=== PATIENT | female | born 1995 | race African-American/Black ===

== ENCOUNTER 2021-09-02 17:49 | Emergency (ER) | payer OTHER, SELFPAY ==
[2021-09-02 18:03] VITALS: BP 138/80; PULSE 84; RESP 18; TEMP 36.9; O2SAT 100
[2021-09-02 19:56] VITALS: BP 124/85; PULSE 82; RESP 16; O2SAT 98
[2021-09-02 20:13] LABS: Appearance Urine Clear (Clear); Bilirubin Urine Negative (Negative); Blood Urine Negative (Negative); Color Urine Yellow (Yellow); Glucose Urine UA Negative (Negative); Ketones Urine Trace mg/dL (Negative); Leukocyte Esterase Ur Negative LEU/UL (Negative); Nitrate Urine Negative (Negative); Protein Urine Negative (Negative); pH Urine 7.5 (5.0-9.0)
--- NOTE | 2021-09-02 20:15 | ED.FEMALEGU ---
HPI - Female Genitourinary General Chief complaint: Urogenital-Female <CELIA Jimenez Last Filed: 09/03/21 02:32> Stated complaint: genital pain <Emmanuelle Whelan PA-C - Last Filed: 09/03/21 02:32> Time Seen by Provider: 09/02/21 19:59 <Emmanuelle Whelan PA-C - Last Filed: 09/03/21 02:32> History of Present Illness HPI Narrative: Patient is a 25-year-old female here for evaluation of vaginal discharge, dysuria, and vaginal lumps for the past 3 days. Patient states her discharge is white and thick, and does not have a atypical odor for her. She states the vaginal lumps are noted around her right inguinal region, and are painful. She does note some burning when she urinates, and states that it is irritating the lumps when it touches them. Her last menstrual cycle is current. She is not using control. She is sexually active with 5 new partners over the past year, and is not using protection. Does note some lower abdominal discomfort after eating, but denies upper abdominal pain, fevers, chills. <CELIA Jimenez Last Filed: 09/03/21 02:32> Related Data Allergies/Adverse reactions: Allergies Allergy/AdvReac Type Severity Reaction Status Date / Time No Known Allergies Allergy Verified 09/02/21 19:57 <CELIA Jimenez Last Filed: 09/03/21 02:32> Review of Systems Review of Systems: Gen: Denies fevers or chills Eyes: Denies eye pain or visual change ENT: Denies congestion Respiratory: Denies shortness of breath or cough CV: Denies chest pain or palpitations GI: Denies abdominal pain nausea, emesis or diarrhea denies burning, urgency, frequency or hematuria Musculoskeletal: Denies back pain or muscle pain Neuro: Denies numbness, tingling, weakness or focal weakness Skin: Denies rash Except as documented, all other systems reviewed and negative <CELIA Jimenez Last Filed: 09/03/21 02:32> All systems reviewed & are unremarkable except as noted in HPI and below <Emmanuelle Whelan PA-C - Last Filed: 09/03/21 02:32> Exam Narrative: APPEARANCE: No acute distress, nontoxic, resting in bed EYES: EOMI HEENT: Normocephalic, atraumatic, OMM RESPIRATORY: No respiratory distress Clear to auscultation bilaterally with no rhonchi wheezing or rales. CARDIOVASCULAR: Regular rate and rhythm without murmurs rubs or gallops. ABDOMINAL: Soft, nontender, nondistended, no rebound or guarding MUSCULOSKELETAl: Moves all extremities. No clubbing, cyanosis or edema. : Exam performed with top case assembler Yenifer. Small amount of thin white vaginal discharge noted in vaginal vault. No cervical lesions noted. Patient is milldy tender with motion of the cervix. She has tender, mobile inguinal lymphadenopathy along the right. No rashes NEURO: Awake and alert. Following commands, speech normal, no focal deficits SKIN: Warm, dry. No rashes lesions or abrasions PSYCHIATRIC: Normal affect/mood, <Emmanuelle Whelan PA-C - Last Filed: 09/03/21 02:32> Course Vital Signs Vital signs: Vital Signs Temperature 98.5 F 09/02/21 18:03 Pulse Rate 84 09/02/21 18:03 Respiratory Rate 18 09/02/21 18:03 Blood Pressure 138/80 09/02/21 18:03 Pulse Oximetry 100 09/02/21 18:03 Temperature 98.5 F 09/02/21 18:03 Pulse Rate 80 09/02/21 21:09 Respiratory Rate 18 09/02/21 21:09 Blood Pressure 125/65 09/02/21 21:09 Pulse Oximetry 100 09/02/21 21:09 <Emmanuelle Whelan PA-C - Last Filed: 09/03/21 02:32> MDM - Female Genitourinary MDM Narrative Medical decision making narrative: 25-year-old female here for evaluation of vaginal discharge and lumps on the side of her vagina, likely inguinal lymphadenopathy. No rashes visualized on exam, but in the setting of mild cervical motion tenderness, 5 new unprotected sexual partner, and vaginal discharge noted on exam, will treat for PID. Feel outpatient management is
[2021-09-02 20:19] LABS: Mucus Urine Rare /lpf; RBC Urine 0-2 /hpf (0-2); Squamous Epithelial Cell Urine Occasional /hpf (Few); WBC Urine 0-3 /hpf
[2021-09-02 20:44] LABS: Add Urine Microscopic? YES
[2021-09-02] MEDS: cefTRIAXone 1 GM VIAL 0.5 GM IM (20:53)
[2021-09-02 21:09] VITALS: BP 125/65; PULSE 80; RESP 18; O2SAT 100
== END 2021-09-02 21:10 | disposition home or self-care (01) ==
PROVIDERS: Emergency Provider Emergency Medicine
DX: N76.0 Acute vaginitis (principal)
CPT/HCPCS: 81001; 81025; 87070; 87491; 87591; 87808; 96372; 99284; J0696

== ENCOUNTER 2021-11-25 19:15 | Emergency (ER) | payer BC, SELFPAY ==
--- NOTE | ~2021-11-25 | US_ITS ---
EXAMINATION: US pelvic complete w TV DATE: 11/25/2021 23:29 INDICATION: Left lower quadrant abdominal pain. TECHNIQUE: Multiple transabdominal and transvaginal sonographic images of the pelvis were obtained. COMPARISON: None. FINDINGS: TRANSABDOMINAL ULTRASOUND: The uterus is retroverted and measures 6.2 x 4.0 x 4.2 cm. There is no free fluid in the pelvis. TRANSVAGINAL ULTRASOUND: The endometrial complex measures 4 mm in thickness. The right ovary measures 2.1 x 1.4 x 2.7 cm. The left ovary measures 2.6 x 1.7 x 2.0 cm. There is normal vascular flow in the ovaries. IMPRESSION: 1. Normal pelvis. Reviewed, dictated and finalized at location A. IMPRESSION: 1. Normal pelvis.
[2021-11-25 20:07] VITALS: BP 128/86; PULSE 84; RESP 16; TEMP 36.5; O2SAT 100
[2021-11-25 21:02] LABS: Basophils Percent Auto 0.5 % (0.2-1.2); Eosinophils Absolute Auto 0.1 K/mm3 (0-0.3); Eosinophils Percent Auto 1.4 % (0-4.4); Hematocrit 39.3 % (37.0-47.0); Hemoglobin 12.7 g/dL (12.0-15.0); Immature Granulocyte Absolute 0.01 K/mm3 (0.00-0.031); Immature Granulocyte Percent A 0.2 % (0-0.5); Lymphocytes Absolute Auto 2.26 K/mm3 (0.9-3.2); Lymphocytes Percent Auto 39.6 % (18.3-44.2); Mean Corpuscular HGB Conc 32.3 g/dl (32-36); Mean Corpuscular Hemoglobin 31.4 pg (26-34); Mean Corpuscular Volume 97.3 fl (80-100); Monocytes Absolute Auto 0.5 K/mm3 (0.1-0.6); Monocytes Percent Auto 8.4 % (2.6-8.5); Neutrophils Absolute Auto 2.8 K/mm3 (1.3-6.7); Neutrophils Percent Auto 49.9 % (45.5-73.1); Platelet Count Result 195 k/mm3 (150-375); Red Blood Count 4.04 M/mm3 (4.2-5.4); Red Cell Distribution Width 12.6 % (11.5-14.5); White Blood Count 5.7 K/mm3 (4.5-10.0)
[2021-11-25 21:18] LABS: Platelet Estimate Adequate (Adequate); Stomatocytes 1+ (NORMAL)
[2021-11-25 21:29] LABS: Beta HCG Quantitative < 2.39 mIU/ML
--- NOTE | 2021-11-25 22:09 | ED.FEMALEGU ---
HPI - Female Genitourinary General Chief complaint: Vaginal Bleeding <CELIA Waller Last Filed: 11/26/21 02:02> Stated complaint: VAG BLEEDING X2D <CELIA Waller Last Filed: 11/26/21 02:02> Time Seen by Provider: 11/25/21 20:49 <CELIA Waller Last Filed: 11/26/21 02:02> Source: patient and old records reviewed <CELIA Waller Last Filed: 11/26/21 02:02> Mode of arrival: ambulatory <CELIA Waller Last Filed: 11/26/21 02:02> Limitations: no limitations <CELIA Waller Last Filed: 11/26/21 02:02> History of Present Illness HPI Narrative: Patient is a 26-year-old female who presents to the ED with report of heavy vaginal bleeding. Patient reports she started her normal menstrual cycle yesterday. She states her cycle has been heavier than usual, occasionally bleeding through super plus tampons. She is noted having blood clots. She states this is abnormal for her. She states she could be . She has had unprotected sex. Also reports having lower abdominal pain that started yesterday, which became worse today and localized to her left lower quadrant. Denies nausea, vomiting, fever, chills, diarrhea, constipation, rectal bleeding, dysuria, hematuria. Per records, patient was treated for PID in August. <CELIA Waller Last Filed: 11/26/21 02:02> Related Data Allergies/Adverse reactions: Allergies Allergy/AdvReac Type Severity Reaction Status Date / Time No Known Allergies Allergy Verified 11/25/21 19:16 <CELIA Waller Last Filed: 11/26/21 02:02> Review of Systems Review of Systems: CONSTITUTIONAL: Denies fever, chills, or sweats. GASTROINTESTINAL: Reports LLQ pain. Denies constipation, rectal bleeding, nausea, vomiting, or diarrhea. GENITOURINARY: Reports heavy vaginal bleeding with clots. Denies dysuria or hematuria. <CELIA Waller Last Filed: 11/26/21 02:02> All systems reviewed & are unremarkable except as noted in HPI and below <Tracy Lorenzo PA-C - Last Filed: 11/26/21 02:02> PMFSH Past Medical History Medical History: Medical History (Updated 11/26/21 @ 01:38 by Tracy Lorenzo PA-C) No pertinent past medical history <Tracy Lorenzo PA-C - Last Filed: 11/26/21 02:02> Surgical History Surgical History: Surgical History (Updated 11/25/21 @ 22:13 by Tracy Lorenzo PA-C) No pertinent past surgical history <Tracy Lorenzo PA-C - Last Filed: 11/26/21 02:02> Social History Social History: Social History (Updated 11/25/21 @ 22:13 by Tracy Lorenzo PA-C) Smoking status: Never smoker <Tracy Lorenzo PA-C - Last Filed: 11/26/21 02:02> Exam Narrative: GENERAL: Well appearing, well-nourished, non-toxic, in no acute distress. HEAD: Normocephalic, atraumatic. NECK: Supple. No adenopathy, no masses. RESPIRATORY: Airway patent, respirations nonlabored. Clear to auscultation bilaterally, no rales, rhonchi, wheezing. CARDIOVASCULAR: Regular rate and rhythm without murmurs, rubs, or gallops. Peripheral pulses 2+ and equal bilaterally. ABDOMINAL: Soft, mild tenderness to palpation in LLQ/suprapubic region. Minimal tenderness in epigastric region. Nondistended, no hepatosplenomegaly. Normoactive BS. PELVIC: MUSCULOSKELETAL: Moves all extremities. Strength/ROM intact without gross deformities. SKIN: Warm, dry, normal color. No rashes. NEURO: A&O X3. Speech clear. Cranial nerves II-XII grossly intact. Steady gait. No ataxic movements. PSYCHIATRIC: Appropriate mood and affect. Normal interaction. <Tracy Lorenzo PA-C - Last Filed: 11/26/21 02:02> Course GARNETTER/PA Physician Supervision For this patient encounter, I reviewed the GARNETTER or PA documentation, treatment plan, and medical decision making <Paulino Miles MD - Last Filed: 11/26/21 05:43> Vital Signs Vital signs: Vital Signs Temperature 97.7 F 11/25/21 20:07 Pulse Rate 84 11/25/21 20:07 Ricky
[2021-11-25 22:35] LABS: Appearance Urine Clear (Clear); Bilirubin Urine Negative (Negative); Blood Urine 3+ (Negative); Color Urine Yellow (Yellow); Glucose Urine UA Negative (Negative); Ketones Urine Negative (Negative); Leukocyte Esterase Ur Negative LEU/UL (Negative); Nitrate Urine Negative (Negative); Protein Urine Negative (Negative); Specific Grav Ur 1.025 (1.001-1.035); Urobilinogen Urine 0.2 mg/dL (<2.0); pH Urine 6.5 (5.0-9.0)
[2021-11-25 22:42] LABS: Bacteria Urine Trace /hpf; Mucus Urine Rare /lpf; RBC Urine >75 /hpf (0-2); Squamous Epithelial Cell Urine Occasional /hpf (Few); WBC Urine 0-3 /hpf
[2021-11-25 22:43] VITALS: BP 133/72; PULSE 69; RESP 18; O2SAT 99
[2021-11-25 22:50] LABS: Add Urine Microscopic? YES
[2021-11-26 00:20] LABS: Alanine Aminotransferase 38 U/L (6-35); Albumin Level 4.4 g/dL (3.5-5.1); Alkaline Phosphatase 45 U/L (38-126); Anion Gap 8 mmol/L (8-16); Aspartate Amino Transferase 50 U/L (14-36); Bilirubin,Total 0.4 mg/dL (0.2-1.3); Blood Urea Nitrogen 13 mg/dL (7-17); Calcium 9.3 mg/dL (8.4-10.2); Carbon Dioxide 29 mmol/L (22-30); Chloride 99 mmol/L (98-107); Estimated CRCL calculation 93 ml/min; Estimated Glomerular Filt Rate > 60; Glucose 93 mg/dL (65-110); Potassium 4.3 mmol/L (3.4-5.0); Sodium 136 mmol/L (137-145)
[2021-11-26] MEDS: IBUPROFEN 600 MG TABLET PO (01:48)
[2021-11-26 01:51] VITALS: BP 116/78; PULSE 68; RESP 18; O2SAT 100
== END 2021-11-26 01:52 | disposition home or self-care (01) ==
PROVIDERS: Physician Assistant; Emergency Provider Emergency Medicine
DX: N94.6 Dysmenorrhea, unspecified (principal); R74.01 Elevation of levels of liver transaminase levels
CPT/HCPCS: 36415; 76830; 76856; 80053; 81001; 81025; 84702; 85025; 99283; 99284; A9270

== ENCOUNTER 2022-11-25 11:37 | Emergency (ER) | payer BC, SELFPAY ==
[2022-11-25] VITALS (7 sets, daily range): BP systolic 101–144; BP diastolic 47–100; PULSE 77–101; RESP 16–18; TEMP 36.2; O2SAT 99–100
--- NOTE | ~2022-11-25 | US_ITS ---
EXAMINATION: US abdomen limited DATE: 11/25/2022 15:50 INDICATION: Right upper quadrant abdominal pain TECHNIQUE: Multiple grayscale and Doppler ultrasound images of the abdomen were obtained. COMPARISON: None FINDINGS: Pancreas is normal. Visualized proximal aorta and inferior vena cava are normal. Liver has normal ech ogenicity and contour, with a smooth surface. No liver lesion identified. No intrahepatic biliary shel[place] t dilation suspected. Portal venous flow was seen in the hepatopetal, normal direction and has normal Doppler waveform. The gallbladder is normal in appearance. There is no cholelithiasis. The common b ile duct measures 4 mm, which is normal. Sonographic Nguyen sign was reported as negative by the sono grapher. IMPRESSION: 1. Normal right upper quadrant ultrasound. Reviewed, dictated and finalized at location L.
--- NOTE | ~2022-11-25 | CT_ITS ---
EXAMINATION: CT abdomen pelvis w con DATE: 11/25/2022 13:56 INDICATION: RUQ pain TECHNIQUE: Computed tomography (CT) of the abdomen and pelvis was performed with 100 mL Omnipaque-350 intravenous contrast. Automated exposure control and iterative reconstruction technique were employe d. The dose-length product was 259.78 mGy-cm. COMPARISON: None. FINDINGS: Lower thorax: Unremarkable Liver: Normal. Biliary/Gallbladder: Gallbladder is normal. No bile duct dilation. Pancreas: No mass or duct dilation. Spleen: Normal. Adrenals:No mass. Kidneys: No mass, stone, or hydronephrosis. GI tract: Moderate distal esophageal and gastric wall edema. No small or large bowel dilation. Normal appendix. Mesentery/Peritoneum: No ascites, mass, or free air. Retroperitoneum: No mass. Pelvis: Pelvic organs are within normal limits. Retroverted uterus. Benign bilateral ovarian cysts. Soft Tissues: Soft tissues and body wall unremarkable. Bones: No acute osseous finding. IMPRESSION: Esophagitis/gastritis. No other acute abdominopelvic process detected Reviewed, dictated and finalized at location K.
[2022-11-25 12:10] LABS: Basophils Percent Auto 0.5 % (0.2-1.2); Eosinophils Absolute Auto 0.1 K/mm3 (0-0.3); Eosinophils Percent Auto 0.9 % (0-4.4); Hematocrit 40.1 % (37.0-47.0); Hemoglobin 13.1 g/dL (12.0-15.0); Immature Granulocyte Absolute 0.01 K/mm3 (0.00-0.031); Immature Granulocyte Percent A 0.2 % (0-0.5); Lymphocytes Absolute Auto 1.61 K/mm3 (0.9-3.2); Lymphocytes Percent Auto 28.7 % (18.3-44.2); Mean Corpuscular HGB Conc 32.7 g/dl (32-36); Mean Corpuscular Hemoglobin 31.3 pg (26-34); Mean Corpuscular Volume 95.9 fl (80-100); Mean Platelet Volume 11.8 fl (7.4-10.4); Monocytes Absolute Auto 0.7 K/mm3 (0.1-0.6); Monocytes Percent Auto 12.3 % (2.6-8.5); Neutrophils Absolute Auto 3.2 K/mm3 (1.3-6.7); Neutrophils Percent Auto 57.4 % (45.5-73.1); Platelet Count Result 227 k/mm3 (150-375); Red Blood Count 4.18 M/mm3 (4.2-5.4); Red Cell Distribution Width 12.7 % (11.5-14.5); White Blood Count 5.6 K/mm3 (4.5-10.0)
[2022-11-25 12:14] LABS: Appearance Urine Clear (Clear); Bilirubin Urine Negative (Negative); Blood Urine Negative (Negative); Color Urine Yellow (Yellow); Glucose Urine UA Negative (Negative); Ketones Urine Negative (Negative); Leukocyte Esterase Ur Negative LEU/UL (Negative); Nitrate Urine Negative (Negative); Protein Urine Negative (Negative); Specific Grav Ur 1.024 (1.001-1.035); pH Urine 7.5 (5.0-9.0)
[2022-11-25 12:21] LABS: Alanine Aminotransferase 24 U/L (6-35); Albumin Level 4.6 g/dL (3.5-5.1); Alkaline Phosphatase 45 U/L (38-126); Anion Gap 5 mmol/L (8-16); Aspartate Amino Transferase 31 U/L (14-36); Bilirubin,Total 0.6 mg/dL (0.2-1.3); Blood Urea Nitrogen 14 mg/dL (7-17); Calcium 9.1 mg/dL (8.4-10.2); Carbon Dioxide 28 mmol/L (22-30); Chloride 100 mmol/L (98-107); Estimated CRCL calculation 108 ml/min; Estimated Glomerular Filt Rate > 60; Glucose 95 mg/dL (65-110); Lipase 48 U/L (23-300); Potassium 4.5 mmol/L (3.4-5.0); Sodium 133 mmol/L (137-145)
[2022-11-25 12:29] LABS: Add Urine Microscopic? NO
[2022-11-25] MEDS: ONDANSETRON INJ 4 MG/2 ML VIAL IV PUSH (13:58)
[2022-11-25] MEDS: MORPHINE SULFATE (*CRX) 4 MG/ML INJ IV PUSH (13:58)
[2022-11-25] MEDS: SODIUM CHLORIDE 0.9% IV 1,000 ML 999 ML IV CONT (13:58)
[2022-11-25] MEDS: FAMOTIDINE 20 MG TABLET 40 MG PO (14:19)
[2022-11-25] MEDS: BELLADONNA ALK/PHENOB ELIX 10 ML, MAG HYDROX/ALUMINUM HYD/SIMETH 30 ML, LIDOCAINE HCL 2... PO (14:19)
--- NOTE | 2022-11-25 17:08 | ED.ABDPAIN ---
HPI - Abdominal Pain General Chief Complaint: Abdominal Pain Stated Complaint: cook pain Time Seen by Provider: 11/25/22 13:12 History of Present Illness HPI narrative: This is a 27F with no significant past medical history who presents to the ED complaining of right upper quadrant abdominal pain for several months, worse in the last 3-4 days. The pain is described as sharp and burning, located in the right upper quadrant, aggravated by eating and not radiating. She states she has vomited occasionally without blood. She denies dysuria, hematuria, blood in stool, fevers or chills. Related Data Allergies Allergy/AdvReac Type Severity Reaction Status Date / Time No Known Allergies Allergy Verified 11/25/22 11:51 Review of Systems Review of Systems: CONSTITUTIONAL: Denies fever, chills, or sweats. CARDIOVASCULAR: Denies chest pain, palpitations, or edema. RESPIRATORY: Denies cough or dyspnea. GASTROINTESTINAL: Right upper quadrant abdominal pain, nausea and nonbloody vomiting denies diarrhea. GENITOURINARY: Denies dysuria or hematuria. SKIN: Denies rash or itching. MUSCULOSKELETAL: Denies back pain, joint pain, or myalgia. NEUROLOGIC: Denies headache, numbness, dizziness, or weakness. PSYCHIATRIC: Denies anxiety or depression. [facility] Past Medical History Medical History History of miscarriage No pertinent past medical history Surgical History Surgical History No pertinent past surgical history [place] teeth removed Family History Family History Father Diabetes mellitus Sibling Asthma Social History Social History Smoking status: Never smoker Alcohol intake: current Substance use: never Lack of Transportation: No Lack of Food: Never True Current Housing: I Have Housing Concerned About Future Housing: No Difficulty Paying Gas/Electric Bills: No Difficulty Paying for Meds: No Currently Unemployed: No Education: Master's Degree or Higher Difficulty w/ Childcare or Family Care: No Living arrangements: alone Occupation/Education: occupation Gender identity (if verbalized by the patient): Female Sexual Orientation (if Verbalized by the Patient): Straight or Heterosexual Spiritual care concerns: No Exam Narrative: GENERAL: Well-developed, well-nourished, and in no acute distress. HEAD: Normocephalic, atraumatic. EYES: PERRLA and EOMI. CHEST: Clear to auscultation. No respiratory distress. No wheezes rales or rhonchi HEART: Regular rate and rhythm. No murmur heard. Normal peripheral pulses. ABDOMEN: Soft, RUQ tenderness to palpation without rebound or guarding. nondistended, normal active bowel sounds. EXTREMITIES: Normal range of motion. No edema. SKIN: Warm, dry, no rash. NEURO: No focal deficits. Alert and oriented x3. PSYCH: Normal mood and affect. Course Course Emergency Course: 17:09 - CT abdomen pelvis demonstrates changes consistent with gastritis/esophagitis but is otherwise negative. Bedside ultrasound by me was concerning for gallstone, however formal US was negative. test negative. CBC and chemistries were unremarkable. After pain medications, the patient states her pain is somewhat improved. I suspect gastritis. Will discharge with a PPI and recommendations for primary care follow up. Discussed return and emergency precautions including signs/symptoms of acute abdomen and intractable vomiting. The patient voiced understanding and is comfortable with the plan. All questions answered to her satisfaction. Vital Signs Vital signs: Vital Signs Temperature 97.2 F L 11/25/22 11:43 Pulse Rate 77 11/25/22 11:43 Respiratory Rate 16 11/25/22 11:43 Blood Pressure 132/100 H 11/25/22 11:43 Pulse Oximetry 100 11/25/22 11:43
[2022-11-25] MEDS: oxyCODONE/ACETAMINOPHEN (*CRX) 5-325 MG TABLET 1 TABLET PO (17:32)
== END 2022-11-25 17:39 | disposition home or self-care (01) ==
PROVIDERS: Emergency Provider Preventive Medicine Aerospace Medicine; PCP Internal Medicine
DX: K29.00 Acute gastritis without bleeding (principal)
CPT/HCPCS: 36415; 74177; 76705; 80053; 81003; 81025; 83690; 85025; 96361; 96374; 96375; 99284; A9270; J2270; J2405; J7030; Q9967

== ENCOUNTER 2022-12-01 15:33 | Outpatient (CLI) | payer BC, SELFPAY ==
--- NOTE | ~2022-12-01 | US_ITS ---
EXAMINATION: US pelvic complete w TV DATE: 12/01/2022 16:19 INDICATION: Pelvic pain TECHNIQUE: Multiple transabdominal and endovaginal sonographic images of the pelvis were obtained. COMPARISON: 11/25/2021; CT, 11/25/2022 FINDINGS: The uterus measures 6.7 x 4 x 4.6 cm. The endometrial complex measures 12 mm. The right ova ry measures 3 x 1.8 x 2.3 cm. The left ovary measures 2.5 x 1.9 x 1.8 cm. There is normal vascular fl ow in the ovaries. There is a small volume of likely physiologic free fluid in the pelvis. IMPRESSION: 1. No sonographic correlate for the patient's symptoms. Reviewed, dictated and finalized at location B.
== END 2022-12-01 15:34 | disposition home or self-care (01) ==
PROVIDERS: PCP Internal Medicine; Visit Provider Obstetrics & Gynecology
DX: R10.2 Pelvic and perineal pain (principal)
CPT/HCPCS: 76830; 76856

== ENCOUNTER 2023-09-11 16:20 | Emergency (ER) | payer BC, SELFPAY ==
--- NOTE | ~2023-09-11 | CT_ITS ---
EXAMINATION: CT abdomen pelvis w con DATE: 09/11/2023 18:18 INDICATION: Right lower quadrant pain TECHNIQUE: Computed tomography (CT) of the abdomen and pelvis was performed with 100 cc Omnipaque 350 intravenous contrast. The dose-length product was 337.61 mGy-cm. Automated exposure control and iter ative reconstruction technique were employed. COMPARISON: CT dated 11/25/2022. FINDINGS: Lung bases unremarkable. Heart size normal. No significant pleural or pericardial effusion. Mild thickening of the gastric wall, suspicious for gastritis. The liver, spleen, pancreas, adrenal glands and kidneys are unremarkable. Small fat-containing umbilical hernia. Gallbladder is contracted . Nonobstructive bowel gas pattern. No free air or free fluid. Uterus is retroverted. Normal appendix . No significant vascular abnormality. No lymphadenopathy. No acute osseous abnormality. IMPRESSION: 1. No acute abdominal abnormality. 2: Mild gastric wall thickening, suspicious for gastritis. Reviewed, dictated and finalized at location A.
--- NOTE | ~2023-09-11 | US_ITS ---
EXAMINATION: US pelvic complete w TV DATE: 09/11/2023 18:43 INDICATION: Right lower quadrant pain. Evaluate for torsion. Comparison:Ultrasound dated 12/01/2022 TECHNIQUE: Multiple transabdominal and endovaginal sonographic images of the pelvis performed. FINDINGS: The uterus measures 6.8 x 3.5 x 3.6 cm. Uterus is retroverted. The endometrial complex shimon ures 4 mm. The right ovary measures 3.5 x 1.8 x 1.6 cm and the left ovary measures 2.2 x 1.9 x 1.9 cm. There ar e small follicles in each ovary. Normal doppler signal in both ovaries. There is free fluid in the pelvis. There are no abnormal masses seen on either side. IMPRESSION: 1. Unremarkable pelvic ultrasound. Reviewed, dictated and finalized at location A.
[2023-09-11 16:28] VITALS: BP 138/88; PULSE 97; RESP 15; TEMP 36.4; O2SAT 99
[2023-09-11 17:32] LABS: Appearance Urine Clear (Clear); Bilirubin Urine Negative (Negative); Blood Urine Negative (Negative); Color Urine Yellow (Yellow); Glucose Urine UA Negative (Negative); Ketones Urine Negative (Negative); Leukocyte Esterase Ur Negative LEU/UL (Negative); Nitrate Urine Negative (Negative); Protein Urine Negative (Negative); Specific Grav Ur 1.027 (1.001-1.035)
[2023-09-11 17:33] LABS: Basophils Percent Auto 0.2 % (0.2-1.2); Eosinophils Absolute Auto 0.1 K/mm3 (0-0.3); Eosinophils Percent Auto 1.5 % (0-4.4); Hematocrit 41.7 % (37.0-47.0); Hemoglobin 13.5 g/dL (12.0-15.0); Immature Granulocyte Absolute 0.01 K/mm3 (0.00-0.031); Immature Granulocyte Percent A 0.2 % (0-0.5); Lymphocytes Absolute Auto 1.78 K/mm3 (0.9-3.2); Lymphocytes Percent Auto 33.5 % (18.3-44.2); Mean Corpuscular HGB Conc 32.4 g/dl (32-36); Mean Corpuscular Volume 95.6 fl (80-100); Monocytes Absolute Auto 0.5 K/mm3 (0.1-0.6); Monocytes Percent Auto 9.6 % (2.6-8.5); Neutrophils Absolute Auto 2.9 K/mm3 (1.3-6.7); Platelet Count Result 220 k/mm3 (150-375); Red Blood Count 4.36 M/mm3 (4.2-5.4); Red Cell Distribution Width 13.4 % (11.5-14.5); White Blood Count 5.3 K/mm3 (4.5-10.0)
[2023-09-11 17:44] LABS: Add Urine Microscopic? NO
[2023-09-11 17:46] LABS: Alanine Aminotransferase 23 U/L (6-35); Alkaline Phosphatase 50 U/L (38-126); Anion Gap 8 mmol/L (4-12); Aspartate Amino Transferase 30 U/L (14-36); Bilirubin,Total 0.6 mg/dL (0.2-1.3); Blood Urea Nitrogen 13 mg/dL (7-17); Calcium 9.3 mg/dL (8.4-10.2); Carbon Dioxide 28 mmol/L (22-30); Chloride 105 mmol/L (98-107); Estimated CRCL calculation 109 ml/min; Estimated Glomerular Filt Rate > 60; Glucose 90 mg/dL (65-110); Lipase 70 U/L (23-300); Potassium 3.6 mmol/L (3.4-5.0); Sodium 141 mmol/L (137-145)
--- NOTE | 2023-09-11 18:07 | PC.NURSE ---
patient to imaging
[2023-09-11] MEDS: ONDANSETRON INJ 4 MG/2 ML VIAL IV PUSH (18:41)
--- NOTE | 2023-09-11 18:49 | ED.ABDPAIN ---
HPI - Abdominal Pain General Chief Complaint: Abdominal Pain Stated Complaint: RLQ pain Time Seen by Provider: 09/11/23 17:10 Source: patient Mode of arrival: ambulatory Limitations: no limitations History of Present Illness HPI narrative: Patient is a 27-year-old female who presents the ED with report of right lower abdominal pain. Patient reports having pain for the last 2 days. Worse with deep breathing and certain movements. Radiates around slightly to back. She tried taking Tylenol without improvement. She does report nausea, denies vomiting. Denies diarrhea, constipation, fevers, dysuria, hematuria. Does note that she is currently on her normal menstrual cycle. Denies hx of ovarian cysts. Related Data Allergies Allergy/AdvReac Type Severity Reaction Status Date / Time No Known Allergies Allergy Verified 02/15/23 13:51 Review of Systems Review of Systems: CONSTITUTIONAL: Denies fever, chills, or sweats. GASTROINTESTINAL: See HPI. GENITOURINARY: Denies dysuria or hematuria. MUSCULOSKELETAL: See HPI All systems reviewed & are unremarkable except as noted in HPI and below PMFSH Past Medical History Medical History History of miscarriage No pertinent past medical history Surgical History Surgical History No pertinent past surgical history [place] teeth removed Family History Family History Father Diabetes mellitus Sibling Asthma Social History Social History Smoking status: Never smoker Alcohol intake: current Substance use: never Lack of Transportation: No Lack of Food: Never True Current Housing: I Have Housing Concerned About Future Housing: No Difficulty Paying Gas/Electric Bills: No Difficulty Paying for Meds: No Currently Unemployed: No Education: Master's Degree or Higher Difficulty w/ Childcare or Family Care: No Living arrangements: alone Occupation/Education: occupation Gender identity (if verbalized by the patient): Female Sexual Orientation (if Verbalized by the Patient): Straight or Heterosexual Spiritual care concerns: No Exam Narrative: GENERAL: Well appearing, well-nourished, non-toxic, in no acute distress. HEAD: Normocephalic, atraumatic. RESPIRATORY: Airway patent, respirations nonlabored. Clear to auscultation bilaterally, no rales, rhonchi, wheezing. CARDIOVASCULAR: Regular rate and rhythm without murmurs, rubs, or gallops. ABDOMINAL: Soft, mild tenderness in right upper quadrant, right middle abdomen. No significant tenderness throughout right lower quadrant. Nondistended. Normoactive BS. MUSCULOSKELETAL: Moves all extremities. No gross deformities. SKIN: Warm, dry, normal color. NEURO: A&O X3. Speech clear. PSYCHIATRIC: Appropriate mood and affect. Normal interaction. Course Vital Signs Vital signs: Vital Signs Temperature 97.5 F L 09/11/23 16:28 Pulse Rate 97 09/11/23 16:28 Respiratory Rate 15 09/11/23 16:28 Blood Pressure 138/88 09/11/23 16:28 Pulse Oximetry 99 09/11/23 16:28 Oxygen Delivery Room Air 09/11/23 16:28 Temperature 97.5 F L 09/11/23 16:28 Pulse Rate 68 09/11/23 19:37 Respiratory Rate 16 09/11/23 19:37 Blood Pressure 128/76 09/11/23 19:37 Pulse Oximetry 98 09/11/23 19:37 Oxygen Delivery Room Air 09/11/23 16:28 MDM - Abdominal Pain MDM Narrative Medical decision making narrative: Patient presented to ED with R lower abdominal pain X 2 days. Vital signs stable upon arrival. Patient reporting pain more in her right lower abdomen, though more tender throughout right upper quadrant on exam. Will obtain lab and imaging to further evaluate. CBC and CMP unremarkable. No significant abnormalities. No leukocytosis. Normal LFTs
[2023-09-11] MEDS: BELLADONNA ALK/PHENOB ELIX 10 ML, MAG HYDROX/ALUMINUM HYD/SIMETH 30 ML, LIDOCAINE HCL 2... PO (18:59)
[2023-09-11 19:37] VITALS: BP 128/76; PULSE 68; RESP 16; O2SAT 98
== END 2023-09-11 19:38 | disposition home or self-care (01) ==
PROVIDERS: Emergency Provider Physician Assistant; PCP Internal Medicine
DX: K29.70 Gastritis, unspecified, without bleeding (principal)
CPT/HCPCS: 36415; 74177; 76830; 76856; 80053; 81003; 81025; 83690; 85025; 96374; 99284; A9270; J2405; Q9967

== ENCOUNTER 2023-11-23 14:42 | Outpatient (CLI) | payer BC, SELFPAY ==
--- NOTE | ~2023-11-23 | US_ITS ---
Pelvic ultrasound. Clinical History: First trimester , amenorrhea Technique: Realtime transabdominal and transvaginal scanning of the pelvis was performed. Color flow Doppler and Doppler spectral analysis were performed. Findings: The uterus is anteverted, and contains an intrauterine gestation. Placenta anteriorly locat ed. [place]-rump length of 5.2 cm corresponds to an estimated gestational age of 12 weeks 0 days. heart rate is 155 bpm. The right ovary measures 4.0 x 3.3 x 3.0 cm. Simple right ovarian cyst measures 3.4 cm. The left ovary measures 3.6 x 3.0 x 2.0 cm. No significant left ovarian or adnexal mass is seen. There is no evidence of free fluid in the cul de sac. Impression: Live intrauterine gestation, with estimated gestational age of 12 weeks 0 days. heart rate is 1 55 bpm. 3.4 cm simple right ovarian cyst. Reviewed, dictated and finalized at [facility]. Impression: Live intrauterine gestation, with estimated gestational age of 12 weeks 0 days. heart rate is 155 bpm. 3.4 cm simple right ovarian cyst.
== END 2023-11-23 14:43 | disposition home or self-care (01) ==
LOC: ANHIMG 14:44
PROVIDERS: PCP Internal Medicine; Visit Provider Nurse Practitioner Family
DX: N91.2 Amenorrhea, unspecified (principal); Z3A.12 12 weeks gestation of pregnancy; N83.291 Other ovarian cyst, right side
CPT/HCPCS: 76801

== ENCOUNTER 2023-12-13 13:46 | Outpatient (CLI) | payer BC, SELFPAY ==
[2023-12-13 14:39] LABS: Basophils Percent Auto 0.3 % (0.2-1.2); Eosinophils Percent Auto 0.6 % (0-4.4); Hematocrit 39.3 % (37.0-47.0); Hemoglobin 12.7 g/dL (12.0-15.0); Immature Granulocyte Absolute 0.02 K/mm3 (0.00-0.031); Immature Granulocyte Percent A 0.3 % (0-0.5); Lymphocytes Absolute Auto 1.17 K/mm3 (0.9-3.2); Lymphocytes Percent Auto 17.4 % (18.3-44.2); Mean Corpuscular HGB Conc 32.3 g/dl (32-36); Mean Corpuscular Hemoglobin 30.5 pg (26-34); Mean Corpuscular Volume 94.5 fl (80-100); Mean Platelet Volume 11.9 fl (7.4-10.4); Monocytes Absolute Auto 0.6 K/mm3 (0.1-0.6); Monocytes Percent Auto 8.2 % (2.6-8.5); Neutrophils Absolute Auto 4.9 K/mm3 (1.3-6.7); Neutrophils Percent Auto 73.2 % (45.5-73.1); Platelet Count Result 216 k/mm3 (150-375); Red Blood Count 4.16 M/mm3 (4.2-5.4); Red Cell Distribution Width 12.9 % (11.5-14.5); White Blood Count 6.7 K/mm3 (4.5-10.0)
[2023-12-13 14:44] LABS: Add Urine Microscopic? NO; Appearance Urine Clear (Clear); Bilirubin Urine Negative (Negative); Blood Urine Negative (Negative); Color Urine Yellow (Yellow); Glucose Urine UA Negative (Negative); Ketones Urine Trace mg/dL (Negative); Leukocyte Esterase Ur Negative LEU/UL (Negative); Nitrate Urine Negative (Negative); Protein Urine Negative (Negative); Specific Grav Ur 1.025 (1.001-1.035); pH Urine 6.5 (5.0-9.0)
[2023-12-13 15:29] LABS: HIV 1/2 Ab P24 Ag Result Negative (Negative)
[2023-12-13 15:57] LABS: Hepatitis B Surface Antigen Negative (Negative); Rubella IgG Antibody 34.8 IU/ML
[2023-12-13 16:11] LABS: Hepatitis C Virus Antibody Negative (Negative)
[2023-12-13 18:40] LABS: Rapid Plasma Reagin Non-Reactive (NonReactive)
[2023-12-16 00:18] LABS: Hematocrit 41.1 % (35.0-45.0); Hemoglobin 12.8 g/dL (11.7-15.5); MCV 99.5 fL (80.0-100.0); RDW 12.8 % (11.0-15.0); Red Blood Cell Count 4.13 Million/uL (3.80-5.10)
== END 2023-12-13 13:47 | disposition home or self-care (01) ==
LOC: ANHLAB 13:48
PROVIDERS: PCP Internal Medicine; Visit Provider Obstetrics & Gynecology
DX: Z34.90 Encounter for supervision of normal pregnancy, unspecified, unspecified trimester (principal)
CPT/HCPCS: 36415; 81003; 83021; 85025; 86592; 86703; 86762; 86787; 86803; 86850; 86900; 86901; 87086; 87340; G0432

== ENCOUNTER 2024-01-08 10:27 | Emergency (ER) | payer BC, OTHER, SELFPAY ==
--- NOTE | ~2024-01-08 | US_ITS ---
EXAMINATION: US OB follow up DATE: 01/08/2024 11:07 INDICATION: Abdominal pain. TECHNIQUE: Real-time ultrasound of the pelvis was performed. COMPARISON: Ultrasound 11/23/2023 FINDINGS: There is a single living fetus in breech presentation. The placenta is anterior, 2.9 cm from the cer vix. heart rate is 178 beats per minute (bpm). The amniotic fluid volume is subjectively normal . The deepest vertical pocket is 3.6 cm. The following biometric data were obtained: Biparietal diameter (BPD): 4.0 cm; head circumference (HC): 15.4 cm; abdominal circumference (AC): 12 .0 cm; femur length (FL): 2.8 cm. These measurements are discordant with high HC/AC ratio. Estimated weight is 226 g +/- 34 g, which correlates with the 86th percentile when 06/14/24 is u sed as estimated date of delivery. As single measurements, these parameters are each equal to the following estimated gestational ages: BPD: 18 weeks 1 days. HC: 18 weeks 3 days. AC: 17 weeks 5 days. FL: 18 weeks 4 days. estimated gestational age based solely on measurements from this exam is 18 weeks 2 days +/- 1 weeks 2 days. IMPRESSION: 1. Single living fetus in breech presentation. 2. Estimated weight is 226 g +/- 34 g, which correlates with the 86th percentile when 06/14/24 is used as estimated date of delivery. Note that estimated date of delivery based on the ultrasound f rom 11/23/2023 would be 06/08/2024. 3. Discordant biometrics with high HC/AC ratio. Reviewed, dictated and finalized at location A. IMPRESSION: 1. Single living fetus in breech presentation. 2. Estimated weight is 226 g +/- 34 g, which correlates with the 86th pe rcentile when 06/14/24 is used as estimated date of delivery. Note that estimate d date of delivery based on the ultrasound from 11/23/2023 would be 06/08/2024. 3. Discordant biometrics with high HC/AC ratio.
[2024-01-08 10:31] VITALS: BP 130/86; PULSE 72; RESP 19; TEMP 36.6; O2SAT 100
--- NOTE | 2024-01-08 11:14 | ED.ABDPAIN ---
HPI - Abdominal Pain General Chief Complaint: Abdominal Pain Stated Complaint: 18 weeks , lower abd Time Seen by Provider: 01/08/24 10:34 History of Present Illness HPI narrative: Patient is a 28-year-old female who presents to the emergency department this morning complaining of right lower quadrant abdominal pain and watery vaginal discharge. Patient states that she is approximately 18 weeks , this is her 2nd , 1st resulted in a miscarriage. Patient sees Dr. Pate as her OBGYN and her last ultrasound was performed approximately 4 weeks ago and revealed a right ovarian cyst which her OB has been monitoring. Patient denies any vaginal bleeding or spotting stating that she has not had any spotting throughout this . Denies any urinary symptoms including dysuria or hematuria, denies any fevers or chills and denies any nausea or vomiting. No additional symptoms or concerns at this time. Related Data Home Medications Medication Instructions Recorded Confirmed dicyclomine 20 mg tablet 20 mg PO BID 11/10/23 11/10/23 famotidine 20 mg tablet 20 mg PO DAILY PRN 11/10/23 11/10/23 Allergies Allergy/AdvReac Type Severity Reaction Status Date / Time No Known Allergies Allergy Verified 01/08/24 10:38 Review of Systems Review of Systems: All systems are reviewed and are negative unless stated otherwise in the HPI. [facility] Past Medical History Medical History History of miscarriage No pertinent past medical history Surgical History Surgical History No pertinent past surgical history Mora teeth removed Family History Family History Father Diabetes mellitus Sibling Asthma Social History Social History Smoking status: Never smoker Alcohol intake: current Substance use: never Lack of Transportation: No Lack of Food: Never True Current Housing: I Have Housing Concerned About Future Housing: No Difficulty Paying Gas/Electric Bills: No Difficulty Paying for Meds: No Currently Unemployed: No Education: Master's Degree or Higher Difficulty w/ Childcare or Family Care: No Living arrangements: alone Occupation/Education: occupation Gender identity (if verbalized by the patient): Female Sexual Orientation (if Verbalized by the Patient): Straight or Heterosexual Spiritual care concerns: No Exam Narrative: General: Alert, awake, afebrile, in no acute distress. HEENT: PERRL, no rhinorrhea, no post nasal drip, oropharynx clear. Cardiovascular: Regular rate and rhythm, no murmurs, rubs or gallops, no peripheral edema. Respiratory: Clear to auscultation bilaterally, no tachypnea, no wheezing, no rhonchi, no rubs, no respiratory distress. Abdomen: Soft, nontender, nondistended, no rebound, no guarding, no peritoneal signs. Musculoskeletal: No joint swelling or deformity, normal muscle tone. Skin: No rashes or petechia, no signs of infection. Neurological: Alert and oriented to person, place, and time. Follows all commands. No focal deficits, speech is clear and fluent. Course Vital Signs Vital signs: Vital Signs Temperature 97.9 F 01/08/24 10:31 Pulse Rate 72 01/08/24 10:31 Respiratory Rate 19 01/08/24 10:31 Blood Pressure 130/86 01/08/24 10:31 Pulse Oximetry 100 01/08/24 10:31 Oxygen Delivery Room Air 01/08/24 10:31 Temperature 97.9 F 01/08/24 10:31 Pulse Rate 72 01/08/24 10:31 Respiratory Rate 19 01/08/24 10:31 Blood Pressure 130/86 01/08/24 10:31 Pulse Oximetry 100 01/08/24 10:31 Oxygen Delivery Room Air 01/08/24 10:31 MDM - Abdominal Pain MDM Narrative Medical decision making narrative: The patient was evaluated by myself in the emergency department. History is
[2024-01-08 11:39] LABS: Add Urine Microscopic? YES; Appearance Urine Clear (Clear); Bacteria Urine Rare /hpf; Bilirubin Urine Negative (Negative); Blood Urine Negative (Negative); Color Urine Yellow (Yellow); Glucose Urine UA Negative (Negative); Ketones Urine 4+ mg/dL (Negative); Leukocyte Esterase Ur Negative LEU/UL (Negative); Nitrate Urine Negative (Negative); Non Pathogenic Casts 0-2; Protein Urine Trace mg/dL (Negative); RBC Urine 0-2 /hpf (0-2); Specific Grav Ur 1.025 (1.001-1.035); Squamous Epithelial Cell Urine Few /hpf (Few); WBC Urine 0-5 /hpf (0-3); pH Urine 6.5 (5.0-9.0)
[2024-01-08 11:49] LABS: Basophils Percent Auto 0.2 % (0.2-1.2); Hematocrit 35.5 % (37.0-47.0); Hemoglobin 11.9 g/dL (12.0-15.0); Immature Granulocyte Absolute 0.02 K/mm3 (0.00-0.031); Immature Granulocyte Percent A 0.3 % (0-0.5); Lymphocytes Absolute Auto 0.86 K/mm3 (0.9-3.2); Lymphocytes Percent Auto 14.6 % (18.3-44.2); Mean Corpuscular HGB Conc 33.5 g/dl (32-36); Mean Corpuscular Hemoglobin 31.3 pg (26-34); Mean Corpuscular Volume 93.4 fl (80-100); Mean Platelet Volume 11.6 fl (7.4-10.4); Monocytes Absolute Auto 0.5 K/mm3 (0.1-0.6); Monocytes Percent Auto 7.6 % (2.6-8.5); Neutrophils Absolute Auto 4.6 K/mm3 (1.3-6.7); Neutrophils Percent Auto 77.3 % (45.5-73.1); Platelet Count Result 167 k/mm3 (150-375); Red Cell Distribution Width 13.2 % (11.5-14.5); White Blood Count 5.9 K/mm3 (4.5-10.0)
[2024-01-08 12:04] LABS: Alanine Aminotransferase 148 U/L (6-35); Albumin Level 3.8 g/dL (3.5-5.1); Alkaline Phosphatase 53 U/L (38-126); Anion Gap 7 mmol/L (4-12); Aspartate Amino Transferase 98 U/L (14-36); Bilirubin,Total 0.4 mg/dL (0.2-1.3); Blood Urea Nitrogen 7 mg/dL (7-17); Calcium 8.6 mg/dL (8.4-10.2); Carbon Dioxide 25 mmol/L (22-30); Chloride 98 mmol/L (98-107); Estimated CRCL calculation 150 ml/min; Estimated Glomerular Filt Rate > 60; Glucose 92 mg/dL (65-110); Magnesium 1.7 mg/dL (1.6-2.3); Potassium 3.2 mmol/L (3.4-5.0); Sodium 130 mmol/L (137-145)
[2024-01-08] MEDS: SODIUM CHLORIDE 0.9% IV 1,000 ML 999 ML IV CONT (12:28)
[2024-01-08 12:29] VITALS: BP 117/70; PULSE 70; RESP 19; O2SAT 100
[2024-01-08 13:12] VITALS: BP 126/66; PULSE 73; RESP 20; O2SAT 100
== END 2024-01-08 13:13 | disposition home or self-care (01) ==
PROVIDERS: Emergency Provider Emergency Medicine; PCP Internal Medicine
DX: O26.892 Other specified pregnancy related conditions, second trimester (principal); R10.31 Right lower quadrant pain; E86.0 Dehydration; Z3A.18 18 weeks gestation of pregnancy
CPT/HCPCS: 36415; 76816; 80053; 81001; 83735; 85025; 96360; 99284; J7030

== ENCOUNTER 2024-03-13 10:34 | Outpatient (CLI) | payer BC, SELFPAY ==
[2024-03-13 11:50] LABS: Basophils Percent Auto 0.1 % (0.2-1.2); Eosinophils Absolute Auto 0.1 K/mm3 (0-0.3); Eosinophils Percent Auto 0.8 % (0-4.4); Hematocrit 33.9 % (37.0-47.0); Immature Granulocyte Absolute 0.03 K/mm3 (0.00-0.031); Immature Granulocyte Percent A 0.4 % (0-0.5); Lymphocytes Absolute Auto 1.37 K/mm3 (0.9-3.2); Lymphocytes Percent Auto 16.2 % (18.3-44.2); Mean Corpuscular HGB Conc 32.4 g/dl (32-36); Mean Corpuscular Hemoglobin 30.6 pg (26-34); Mean Corpuscular Volume 94.2 fl (80-100); Mean Platelet Volume 11.5 fl (7.4-10.4); Monocytes Absolute Auto 0.5 K/mm3 (0.1-0.6); Monocytes Percent Auto 5.6 % (2.6-8.5); Neutrophils Absolute Auto 6.5 K/mm3 (1.3-6.7); Neutrophils Percent Auto 76.9 % (45.5-73.1); Platelet Count Result 183 k/mm3 (150-375); Red Cell Distribution Width 13.6 % (11.5-14.5); White Blood Count 8.5 K/mm3 (4.5-10.0)
[2024-03-13 12:01] LABS: Glucose 1 Hour PP 50gm Dose 141 mg/dL
== END 2024-03-13 10:35 | disposition home or self-care (01) ==
LOC: ANHLAB 10:35
PROVIDERS: PCP Internal Medicine; Visit Provider Nurse Practitioner Family
DX: Z34.90 Encounter for supervision of normal pregnancy, unspecified, unspecified trimester (principal)
CPT/HCPCS: 36415; 82947; 85025

== ENCOUNTER 2024-03-23 07:12 | Outpatient (CLI) | payer BC, SELFPAY ==
[2024-03-23 07:40] LABS: Basophils Percent Auto 0.3 % (0.2-1.2); Eosinophils Percent Auto 0.5 % (0-4.4); Hematocrit 32.9 % (37.0-47.0); Hemoglobin 10.7 g/dL (12.0-15.0); Immature Granulocyte Absolute 0.03 K/mm3 (0.00-0.031); Immature Granulocyte Percent A 0.4 % (0-0.5); Lymphocytes Absolute Auto 1.18 K/mm3 (0.9-3.2); Lymphocytes Percent Auto 15.5 % (18.3-44.2); Mean Corpuscular HGB Conc 32.5 g/dl (32-36); Mean Corpuscular Hemoglobin 30.4 pg (26-34); Mean Corpuscular Volume 93.5 fl (80-100); Mean Platelet Volume 11.6 fl (7.4-10.4); Monocytes Absolute Auto 0.6 K/mm3 (0.1-0.6); Monocytes Percent Auto 7.6 % (2.6-8.5); Neutrophils Absolute Auto 5.8 K/mm3 (1.3-6.7); Neutrophils Percent Auto 75.7 % (45.5-73.1); Platelet Count Result 181 k/mm3 (150-375); Red Blood Count 3.52 M/mm3 (4.2-5.4); Red Cell Distribution Width 13.8 % (11.5-14.5); White Blood Count 7.6 K/mm3 (4.5-10.0)
[2024-03-23 07:55] LABS: Glucose Fasting Gestational 82 mg/dL (>/=95)
[2024-03-23 09:16] LABS: Glucose 1 Hour Gest 137 mg/dL (>/=180)
[2024-03-23 10:32] LABS: Glucose 2 Hour Gest 121 mg/dL (>/= 155)
[2024-03-23 11:30] LABS: Glucose 3 Hour Gest 110 mg/dL (>/=140)
== END 2024-03-23 07:13 | disposition home or self-care (01) ==
PROVIDERS: PCP Internal Medicine; Visit Provider Obstetrics & Gynecology
DX: O99.810 Abnormal glucose complicating pregnancy (principal)
CPT/HCPCS: 36415; 82951; 82952; 85025

== ENCOUNTER 2024-04-13 11:56 | Outpatient (CLI) | payer BC, SELFPAY ==
[2024-04-13 12:10] LABS: Basophils Percent Auto 0.2 % (0.2-1.2); Eosinophils Percent Auto 0.5 % (0-4.4); Hematocrit 34.7 % (37.0-47.0); Hemoglobin 11.3 g/dL (12.0-15.0); Immature Granulocyte Absolute 0.04 K/mm3 (0.00-0.031); Immature Granulocyte Percent A 0.5 % (0-0.5); Lymphocytes Absolute Auto 1.37 K/mm3 (0.9-3.2); Lymphocytes Percent Auto 15.6 % (18.3-44.2); Mean Corpuscular HGB Conc 32.6 g/dl (32-36); Mean Corpuscular Hemoglobin 30.4 pg (26-34); Mean Corpuscular Volume 93.3 fl (80-100); Mean Platelet Volume 11.7 fl (7.4-10.4); Monocytes Absolute Auto 0.5 K/mm3 (0.1-0.6); Monocytes Percent Auto 5.8 % (2.6-8.5); Neutrophils Absolute Auto 6.8 K/mm3 (1.3-6.7); Neutrophils Percent Auto 77.4 % (45.5-73.1); Platelet Count Result 170 k/mm3 (150-375); Red Blood Count 3.72 M/mm3 (4.2-5.4); Red Cell Distribution Width 14.6 % (11.5-14.5); White Blood Count 8.8 K/mm3 (4.5-10.0)
[2024-04-13 12:39] LABS: Giant Platelets Present; Large Platelets Present; Platelet Estimate Adequate (Adequate); Polychromasia 2+
[2024-04-13 12:40] LABS: Rapid Plasma Reagin Non-Reactive (NonReactive); Schistocytes Rare
[2024-04-13 12:59] LABS: HIV 1/2 Ab P24 Ag Result Negative (Negative)
== END 2024-04-13 11:57 | disposition home or self-care (01) ==
LOC: ANHLAB 11:57
PROVIDERS: PCP Internal Medicine; Visit Provider Nurse Practitioner Obstetrics & Gynecology
DX: Z34.90 Encounter for supervision of normal pregnancy, unspecified, unspecified trimester (principal)
CPT/HCPCS: 36415; 85025; 86592; 86703; G0432

== ENCOUNTER 2024-06-05 09:52 | Observation (INO) | payer BC, SELFPAY ==
--- OUTSIDE RECORDS SUMMARY | 2024-06-05 12:17 | XMS_ITS | Referral Summary ---
Author Organization [facility] at the [facility] Address [address] [place] [address] Care Team Providers Care Hot Press Operator Name Role Phone Milagros Isabel MD Primary Care Provider +1- [phone] Allergies No known active allergies Medications ciprofloxacin (CIPRO) 500 mg tablet Take 1 tablet (500 mg total) by mouth 2 (two) times a day Active metroNIDAZOLE (FLAGYL) 500 mg/100 mL IVBP Infuse 100 mL (500 mg total) into a venous catheter Active omeprazole OTC (PriLOSEC OTC) 20 mg EC tablet Take 1 tablet (20 mg total) by mouth daily Active Active Problems Problem Noted Date Diagnosed Date CORIN (obstructive sleep apnea) 11/19/2021 Assessment & Plan (11/19/2021 3:56 PM CDT): Patient will continue with auto titrating CPAP set at 5-15 cm water pressure. Patient was reminded that she should wear her CPAP machine at least 4 hours a night on 70% of the nights. DME aero Resolved Problems Problem Noted Date Diagnosed Date Resolved Date Snoring 05/28/2021 11/19/2021 Assessment & Plan (05/28/2021 3:59 PM MINE WEDGE SAWYER): The patient presents with snoring and daytime hypersomnia. She also has a history of sleep paralysis and hypnagogic hallucinations. I have recommended proceeding with a nocturnal polysomnogram with a split night protocol if necessary and MSLT p.r.n.. She will follow-up here in 3 months. Hypersomnia 05/28/2021 11/19/2021 Social History Tobacco Use Types Packs/Day Years Used Date Smoking Tobacco: Never Smokeless Tobacco: Never AUDIT-C Answer Date Recorded Q1: How often do you have a drink containing alcohol? 2-3 times a week 12/17/2022 Q2: How many drinks containi ng alcohol do you have on a typical day when you are drinking? Patient does not drink Q3: How often do you have si x or more drinks on one occasion? Never 12/17/2022 Personal Safety Answer Date Recorded Getting School Help Needed Not on file 01/06 Comments Unknown Sex and Gender Information Value Date Recorded Sex Assigned at Not on file Legal Sex Female 6:06 PM MINE WEDGE SAWYER Gender Identity Female 11/29/2022 1:26 PM CDT Sexual Orientation Not on file Last Filed Vital Signs Vital Sign Reading Time Taken Comments Blood Pressure 130/83 12/17/2022 4:25 PM CDT Pulse 74 12/17/2022 4:25 PM CDT Temperature 36.9 C (98.4 F) 12/17/2022 2:50 PM CDT Respiratory Rate 12 12/17/2022 4:25 PM CDT Oxygen Saturation 100% 12/17/2022 4:25 PM CDT Inhaled Oxygen Concentration - - Weight 68 kg (150 lb) 12/17/2022 2:43 PM CDT Height 157.5 cm (5' 2 ) 12/17/2022 2:43 PM CDT Body Mass Index 27.44 12/17/2022 2:43 PM CDT Plan of Treatment Not on file Insurance [facility] [place] Care Teams Hot Press Operator Relationship Specialty Start Date End Date Milagros Isabel MD [address] [place], [place] [id number] PCP - General Internal Medicine 12/15/22
--- OUTSIDE RECORDS SUMMARY | 2024-06-05 12:17 | XMS_ITS | Clinical Summary ---
Author Organization [facility] at the [facility] Address [address] [place] [address] Care Team Providers Care Solutions Operator Name Role Phone Milagros Isabel MD Primary Care Provider +1- [phone] Allergies No known active allergies Medications ciprofloxacin [...] 11/19/2021 Assessment & Plan (05/28/2021 3:59 PM MACHINE FOLDER): The patient presents with snoring and daytime hypersomnia. She also has a history of sleep paralysis and hypnagogic hallucinations. I have recommended proceeding with a nocturnal polysomnogram with a split night protocol if necessary and MSLT p.r.n.. She will follow-up here in 3 months. Hypersomnia 05/28/2021 11/19/2021 Surgical History Surgery Date Site/Laterality Comments WISDOM TOOTH EXTRACTION Medical History Medical History Date Comments Depression Social History Tobacco Use Types Packs/Day Years [...] on file Legal Sex Female 6:06 PM MACHINE FOLDER Gender Identity Female 11/29/2022 1:26 PM CDT Sexual Orientation Not on file Obstetrics History Last Filed Vital Signs Vital Sign Reading [...] 12/17/2022 2:43 PM CDT Plan of Treatment Health Maintenance Due Date Last Done Comments Cervical Cancer Screening 1993 Depression Screening 1993 Hepatitis C Screening 1993 Varicella Vaccines (2 of 2 - 2-dose childhood series) 08/15/2000 05/23/2000 Regular Well Visit/Exam 18-64 10/31/2011 DTaP/Tdap/Td Vaccine (7 - Td or Tdap) 09/17/2014 09/17/2004, 12/07/1997, 02/09/1995, Additional history exists Influenza Vaccine (#1) 2023 Hepatitis B Screening Completed 08/09/1994 , 1993, 1993, Additional history exists HPV Vaccines Aged Out No longer eligi ble based on patient's age to complete this topic Pneumococcal vaccine <65 Aged Out No longer eligible based on patient's age to complete this topic [place] Care Teams Solutions Operator Relationship Specialty Start Date End Date Milagros Isabel MD [address] [place] [address] PCP - General Internal Medicine 12/15/22
--- OUTSIDE RECORDS SUMMARY | 2024-06-05 12:17 | XMS_ITS | Clinical Summary ---
Author Organization [facility] [employer] [facility] 2022 Address [address] [address] Phone Care Team Providers Care Hr Operations Advisor Name Role Phone Unavailable Primary Care Provider Unavailabl e Encounters Date Type Department Care Team Description 05/15/2024 External Device Data [facility] Provider, Abstract 05/09/2024 External Device Data [facility] ABSTRACTION Provider, Abstract 05/09/2024 External Device Data [facility] ABSTRACTION Provider, Abstract 05/02/2024 External Device Data [facility] Provider, Abstract 04/19/2024 1:30 PM GREASE RACK WORKER - 04/19/2024 11:59 PM GREASE RACK WORKER Hospital Encounter [facility] Joe Lomas [address] [place] [phone] Nani Aguilera MD Discharge Disposition: Home or Self Care 04/05/2024 10:59 AM GREASE RACK WORKER - 04/05/2024 11:59 PM GREASE RACK WORKER Hospital Encounter [facility] Joe Lomas [address] [place] [phone] Leon Hall MD Discharge Disposition: Home or Self Care from Last 3 Months Social History Tobacco Use Types Packs/Day Years Used Date Smoking Tobacco: Never Assessed Comments Unknown Sex and Gender Information Value Date Recorded Sex Assigned at Not on file Legal Sex Female 5:01 PM GREASE RACK WORKER Gender Identity Not on file Sexual Orientation Not on file Plan of Treatment Health Maintenance Due Date Last Done Comments HEPATITIS B VACCINES (1 of 3 - 19+ 3-dose series) 2012 04/01/2016, 10/13/2015, 09/02/2015 CERVICAL CANCER SCREENING 10/31/2023 INFLUENZA VACCINE (#1) 2023 , 03/22/2019, 05/12/2018, Additional history exists COVID-19 Vaccine (3 - season) 2023 12/30/2020, 12/01/2020 DTAP/TDAP/TD VACCINES (2 - Td or Tdap) 08/27/2025 08/28/2015 HPV VACCINES Completed 07/20/2017, 10/17, 04/09/2016 PNEUMOCOCCAL VACCINE 0-64 YEARS Aged Out No longer eligible based on patient's age to complete this topic Procedures Procedure Name Priority Date/Time Associated Diagnosis Comments US OB FOLLOW UP PER FETUS Routine 04/19/2024 1:48 PM GREASE RACK WORKER Polyhydramnios affecting US OB FOLLOW UP PER FETUS Routine 04/05/2024 11:34 AM GREASE RACK WORKER Low maternal weight gain, third trimester from Last 3 Months Results * US OB FOLLOW UP PER FETUS (04/19/2024 1:48 PM GREASE RACK WORKER) Only the most recent of2 resultswithin the time period is included. Anatomical Region Laterality Modality Pelvis Ultrasound 04/19/2024 1:33 PM GREASE RACK WORKER Narrative 04/19/2024 1:51 PM GREASE RACK WORKER [facility] ----- Pat. Name: GABRIELA KENNEDY Study Date: 04/19/2024 1:33pm Pat. NO: [id number] Referring MD: LEON HALL MD Site: [facility] Specialist: Birgit Díaz RDMS : 1995 Age: 28 ----- INDICATION ----- Screening Follow-Up CODING ----- Diagnoses Z3A.33: Weeks of gestation Z36.2: Encounter for other screening follow-up Procedures [id number]: Ultrasound, uterus, real time with image documentation, follow up, transabdominal approach per fetus HISTORY ----- OB History 2. Para 0 A1 MATERNAL ASSESSMENT ----- Physical Exam Initial weight 69 kg, 153 lb. Initial BMI 27.98 kg/m METHOD ----- Transabdominal ultrasound examination ----- Fair . Number of fetuses: 1 DATING ----- LMP on: 09/08/2023 Cycle: regular cycle GA by LMP 32 w + 0 d JUSTYN by LMP: 06/14/2024 GA by prior assessment 33 w + 1 d JUSTYN by prior assessment: 06/06/2024 Method of dating: Restore dating from previous exam Assigned: based on stated JUSTYN, selected on 01/12/2024 Assigned GA 33 w + 1 d Assigned JUSTYN: 06/06/2024 GENERAL EVALUATION ----- Cardiac activity present. FHR 138 bpm. movements: present. Presentation: cephalic Placenta: Placental site: anterior Umbilical cord: Cord vessels: 3 vessel cord. Insertion site: placental insertion: normal Amniotic fluid: Amount of AF: normal amount. MVP 5.0 cm. CANDE 16.2 cm. Q1 5.0 cm, Q2 4.4 cm, Q3 2.9 cm, Q4 3.9 cm ANATOMY ----- The following structures appear normal: Heart / Thorax Cardiac rhythm. Abdomen Stomach. Bladder. GROWTH OVERVIEW ----- Exam date GA BPD (mm) HC (mm) AC (mm) FL (mm) HL (mm) EFW (g) 01/26/2024 21w 1d 47.8 22% 175.4 6% 155.0 28% 34.8 35% 33.5 54% 373 25% 04/05/2024 31w 1d 78.6 52% 296.5 60% 285.4 85% 61.5 58% 1,945 76% COMMENT ----- Patient's name and date of were verified by the frame and scrap crusher prior to the exam IMPRESSION ----- -Fair living fetus with a gestational age of 33w 1d, based on the reported clinical dates. -Fetus is in cephalic presentation. -Amniotic fluid volume is normal for gestational age. (CANDE of 16.2 cm , MVP of 5 cm ) Further sonogram as clinically indicated. Thank you for allowing us to participate in the care of this patient. Procedure Note Agusto Segovia MD - 04/19/2024 [facility] ----- Pat. Name:Raul KENNEDY Date:04/19/2024 1:33pm Pat. NO: [id number] :LEON HALL [facility]Bir[facility] D[facility]az RDMS :1995Age:28 ----- INDICATION ----- Screening Follow-Up CODING ----- Diagnoses Z3A.33: Weeks of gestation Z36.2: Encounter for other screeningfollow-up Procedures [id number]: Ultrasound, uterus, real time withimage documentation, follow up, transabdominal approach per fetus HISTORY ----- OB History 2. Para 0 A1 MATERNAL ASSESSMENT ----- Physical Exam Initial weight 69 kg, 153 lb. Initial BMI 27.98kg/m METHOD ----- Transabdominal ultrasound examination ----- Fair . Number of fetuses: 1 DATING ----- LMP on:09/08/2023 Cycle:regular cycle GA by LMP32 w + 0 d JUSTYN by LMP:06/14/2024 GA by prior [id number] w + 1 d JUSTYN by prior assessment:06/06/2024 Method of dating:Restore dating from previous exam Assigned:based on stated JUSTYN, selected on 01/12/2024 Assigned GA33 w + 1 d Assigned JUSTYN:06/06/2024 GENERAL EVALUATION ----- Cardiac activity present. FHR 138 bpm. movements: present.Presentation: cephalic Placenta: Placental site: anterior Umbilical cord: Cord vessels: 3 vessel cord. Insertion site: placentalinsertion: normal Amniotic fluid: Amount of AF: normal amount. MVP 5.0 cm. CANDE 16.2 cm. Q15.0 cm, Q2 4.4 cm, Q3 2.9 cm, Q4 3.9 cm ANATOMY ----- The following structures appear normal: Heart / Thorax Cardiac rhythm. Abdomen Stomach. Bladder. GROWTH OVERVIEW ----- Exam date GA BPD (mm) HC (mm) AC (mm) FL(mm) HL (mm) EFW (g) 01/26/2024 21w 1d 47.8 22% 175.4 6% 155.0 28%34.8 35% 33.5 54% 373 25% 04/05/2024 31w 1d 78.6 52% 296.5 60% 285.4 85%61.5 58% 1,945 76% COMMENT ----- Patient's name and date of were verified by the frame and scrap crusher prior tothe exam IMPRESSION ----- -Fair living fetus with a gestational age of 33w 1d, based on thereported clinical dates. -Fetus is in cephalic presentation. -Amniotic fluid volume is normal for gestational age. (CANDE of 16.2 cm ,MVP of 5 cm ) Further sonogram as clinically indicated. Thank you for allowing us to participate in the care of this patient. us Nani Aguilera MD ORDERABLES Final Resul t from Last 3 Months Insurance [facility] BLUE ACCESS CHOICE [facility]
--- NOTE | 2024-06-05 13:57 | OBADM ---
This patient, Gabriela Kennedy, admitted to the OB room Labor/Delivery/Recovery 107 for observation. Patient/family oriented to hospital policies and general routines including ID bracelet, bed and alarms, visiting hours, pain management, procedures, bathroom and other care routines, personal items, smoking policy, room service/diet, and visiting hours. Patient/Family are encouraged to report perceived risks to care and to ask questions if they do not understand what they are told or what they should do.
--- NOTE | 2024-06-12 00:46 | PM.OBTRLD ---
OB - Triage/Final Diagnosis Visit Information Comments/Additional reasons for admission: I have assessed the risk for this patient, Gabriela Kennedy, and determined that she would benefit from observation care. Final Diagnosis (1) False labor: Code(s): O47.9 - False labor, unspecified Status: Acute
== END 2024-06-05 12:45 | disposition home or self-care (01) ==
PROVIDERS: Admitting Provider Obstetrics & Gynecology; Visit Provider Obstetrics & Gynecology
DX: O47.1 False labor at or after 37 completed weeks of gestation (principal); Z3A.39 39 weeks gestation of pregnancy
CPT/HCPCS: G0378; G0379

== ENCOUNTER 2024-06-10 11:43 | Inpatient (IN) | payer BC, SELFPAY ==
[2024-06-10] VITALS (114 sets, daily range): BP systolic 84–182; BP diastolic 56–108; PULSE 29–157; TEMP 36.3–37.2; O2SAT 70–100; BMI 31.0
--- OUTSIDE RECORDS SUMMARY | 2024-06-10 14:20 | XMS_ITS | Clinical Summary ---
Author Organization [facility] at the [facility] Address [address] [place] [address] Care Team Providers Care Grinding Machine Operator Name Role Phone Milagros Isabel MD Primary Care Provider +1- [phone] Allergies No known active allergies Medications ciprofloxacin [...] 11/19/2021 Assessment & Plan (05/28/2021 3:59 PM TARIFF PUBLISHING AGENT): The patient presents with snoring and daytime [...] on file Legal Sex Female 6:06 PM TARIFF PUBLISHING AGENT Gender Identity Female 11/29/2022 1:26 PM CDT [...] [place] Care Teams Grinding Machine Operator Relationship Specialty Start Date End Date Milagros Isabel MD [address] [place] [address] PCP - General Internal Medicine 12/15/22
--- OUTSIDE RECORDS SUMMARY | 2024-06-10 14:20 | XMS_ITS | Referral Summary ---
Author Organization [facility] at the [facility] Office Center Address [address] [place] [address] Care Team Providers Care Womens Volleyball Coach Name Role Phone Milagros Isabel MD Primary Care Provider +1- [phone] Allergies No known active allergies Medications ciprofloxacin [...] 11/19/2021 Assessment & Plan (05/28/2021 3:59 PM TREE DRILLER): The patient presents with snoring and daytime [...] on file Legal Sex Female 6:06 PM TREE DRILLER Gender Identity Female 11/29/2022 1:26 PM CDT [...] of Treatment Not on file Insurance [facility] [place] Care Teams Womens Volleyball Coach Relationship Specialty Start Date End Date Milagros Isabel MD [address] [place], [place] [phone] PCP - General Internal Medicine 12/15/22
--- OUTSIDE RECORDS SUMMARY | 2024-06-10 14:20 | XMS_ITS | Clinical Summary ---
Author Organization [employer] [address] - [address] Address [address] [address] Phone Care Team Providers Care Senior Net Developer Name Role Phone Unavailable Primary Care Provider Unavailabl e Encounters Date Type Department Care Team Description 06/05/2024 External Device Data [facility] Provider, Abstract 05/15/2024 External Device Data [facility] Provider, Abstract 05/09/2024 External Device Data [facility] Provider, Abstract 05/09/2024 External Device Data [facility] Provider, Abstract 05/02/2024 External Device Data [facility] Provider, Abstract 04/19/2024 1:30 PM ENTERTAINMENT DIRECTOR - 04/19/2024 11:59 PM ENTERTAINMENT DIRECTOR Hospital Encounter [facility] Joe Lomas [address] [place] [phone] Nani Aguilera MD Discharge Disposition: Home or Self Care 04/05/2024 10:59 AM ENTERTAINMENT DIRECTOR - 04/05/2024 11:59 PM ENTERTAINMENT DIRECTOR Hospital Encounter [facility] Joe Lomas [address] [place] [phone] Leon Hall MD Discharge Disposition: Home or Self Care from Last 3 Months Social History Tobacco Use Types Packs/Day Years Used Date Smoking Tobacco: Never Assessed Comments Unknown Sex and Gender Information Value Date Recorded Sex Assigned at Not on file Legal Sex Female 5:01 PM ENTERTAINMENT DIRECTOR Gender Identity Not on file Sexual Orientation [...] UP PER FETUS Routine 04/19/2024 1:48 PM ENTERTAINMENT DIRECTOR Polyhydramnios affecting US OB FOLLOW UP PER FETUS Routine 04/05/2024 11:34 AM ENTERTAINMENT DIRECTOR Low maternal weight gain, third trimester from Last 3 Months Results * US OB FOLLOW UP PER FETUS (04/19/2024 1:48 PM ENTERTAINMENT DIRECTOR) Only the most recent of2 resultswithin the time period is included. Anatomical Region Laterality Modality Pelvis Ultrasound 04/19/2024 1:33 PM ENTERTAINMENT DIRECTOR Narrative 04/19/2024 1:51 PM ENTERTAINMENT DIRECTOR [facility] ----- Pat. Name: GABRIELA KENNEDY Study Date: 04/19/2024 1:33pm Pat. NO: [id number] Referring MD: LEON HALL MD Site: [place] Reagent Tender Helper: Birgit Díaz RDMS : 1995 Age: 28 ----- INDICATION ----- Screening Follow-Up CODING ----- Diagnoses Z3A.33: Weeks of gestation Z36.2: Encounter for other screening follow-up Procedures [id number]: Ultrasound, uterus, real time with image documentation, [...] from previous exam Assigned: based on stated JUSTNY, selected on 01/12/2024 Assigned GA 33 w [...] and date of were verified by the boom conveyor operator prior to the exam IMPRESSION ----- -Fair [...] Pat. Name:Raul KENNEDY Date:04/19/2024 1:33pm Pat. NO: [id number] :LEON HALL MD [facility]Bir[facility] Díaz RDMS :1995Age:28 ----- INDICATION ----- Screening Follow-Up CODING ----- Diagnoses Z3A.33: Weeks of gestation Z36.2: Encounter for other screeningfollow-up Procedures [id number]: Ultrasound, uterus, real time withimage documentation, follow [...] d JUSTYN by LMP:06/14/2024 GA by prior [id number] w + 1 d JUSTYN by prior [...] and date of were verified by the boom conveyor operator prior tothe exam IMPRESSION ----- -Fair living [...] Resul t from Last [address] [place] [address] [place] [address] BLUE ACCESS CHOICE [facility]
--- NOTE | 2024-06-10 14:51 | LDADM ---
This patient, Gabriela Kennedy, was admitted to Labor/Delivery/Recovery 103 on 06/10/24 at 11:43. Plans for labor, pain management and were discussed with patient. Patient/family oriented to hospital policies and general routines including ID bracelet, bed and alarms, visiting hours, pain management, procedures, bathroom and other care routines, personal items, smoking policy, room service/diet and guest tray routines, security routines, and visiting hours. Patient/Family are encouraged to report perceived risks to care and to ask questions if they do not understand what they are told or what they should do. See [facility] for further documentation.
[2024-06-10 14:52] LABS: Basophils Percent Auto 0.2 % (0.2-1.2); Eosinophils Percent Auto 0.2 % (0-4.4); Hematocrit 40.2 % (37.0-47.0); Hemoglobin 13.1 g/dL (12.0-15.0); Immature Granulocyte Absolute 0.02 K/mm3 (0.00-0.031); Immature Granulocyte Percent A 0.2 % (0-0.5); Lymphocytes Absolute Auto 1.33 K/mm3 (0.9-3.2); Lymphocytes Percent Auto 13.7 % (18.3-44.2); Mean Corpuscular HGB Conc 32.6 g/dl (32-36); Mean Corpuscular Hemoglobin 29.8 pg (26-34); Mean Corpuscular Volume 91.6 fl (80-100); Mean Platelet Volume 12.4 fl (7.4-10.4); Monocytes Absolute Auto 0.7 K/mm3 (0.1-0.6); Monocytes Percent Auto 7.1 % (2.6-8.5); Neutrophils Absolute Auto 7.7 K/mm3 (1.3-6.7); Neutrophils Percent Auto 78.6 % (45.5-73.1); Platelet Count Result 158 k/mm3 (150-375); Red Blood Count 4.39 M/mm3 (4.2-5.4); Red Cell Distribution Width 14.9 % (11.5-14.5); White Blood Count 9.7 K/mm3 (4.5-10.0)
[2024-06-10 14:58] LABS: OBXCEM ROM Plus Negative (Negative)
[2024-06-10 15:38] LABS: Syphilis IgG/IgM Antibody Negative (Negative)
[2024-06-10 15:44] LABS: HIV 1/2 Ab P24 Ag Result Negative (Negative)
[2024-06-10] MEDS: LACTATED RINGERS 1,000 ML 125 ML IV CONT ×3 (17:18→23:35)
[2024-06-10] MEDS: ONDANSETRON INJ 4 MG/2 ML VIAL IV PUSH (17:55)
--- NOTE | 2024-06-10 18:21 | P.PNAN_ITS ---
Anes - Initial Pre Proc Eval Procedure: Labor Epidural Date/Time: 06/10/24 18:21 Surgeon: Leon Hall MD Pre Op Diagnosis: Labor Pain Pre Op Diagnosis: Contractions Patient Data Age: 28 Gender: F Height: 1.57 m Weight: 77 kg Last Vital Signs Temp 36.5 C 06/10/24 17:30 Pulse 100 06/10/24 18:01 BP 117/64 06/10/24 18:01 O2 Del Method Room Air 06/10/24 14:51 Allergies Allergy/AdvReac Type Severity Reaction Status Date / Time No Known Allergies Allergy Verified 06/05/24 13:13 Home Medications ?Medication ?Instructions ?Recorded ?Confirmed ?Type vitamin#30 30 mg iron-10 1 cap PO DAILY 02/14/24 06/01/24 History mg iron-folic acid 1 mg-omg3 capsule ferrous sulfate 325 mg (65 mg 325 mg PO DAILY 04/13/24 06/01/24 History iron) tablet Laboratory Tests 06/10/24 06/10/24 06/10/24 14:44 14:46 14:51 WBC 9.7 K/mm3 (4.5-10.0) RBC 4.39 M/mm3 (4.2-5.4) Hgb 13.1 g/dL (12.0-15.0) Hct 40.2 % (37.0-47.0) MCV 91.6 fl (80-100) MCH 29.8 pg (26-34) MCHC 32.6 g/dl (32-36) RDW 14.9 H % (11.5-14.5) Plt Count 158 k/mm3 (150-375) MPV 12.4 H fl (7.4-10.4) Immature Gran % (Auto) 0.2 % (0-0.5) Neut % (Auto) 78.6 H % (45.5-73.1) Lymph % (Auto) 13.7 L % (18.3-44.2) [place] % (Auto) 7.1 % (2.6-8.5) Eos % (Auto) 0.2 % (0-4.4) Baso % (Auto) 0.2 % (0.2-1.2) Lymph # (Auto) 1.33 K/mm3 (0.9-3.2) [place] # (Auto) 0.7 H K/mm3 (0.1-0.6) Eos # (Auto) 0.0 K/mm3 (0-0.3) Baso # (Auto) 0.0 K/mm3 (0.0-0.1) Abs Immat Gran (auto) 0.02 K/mm3 (0.00-0.031) Absolute Neuts (auto) 7.7 H K/mm3 (1.3-6.7) Absolute Nucleated RBC 0.000 K/mm3 (0.0-0.012) Nucleated RBC % 0.0 % (0.0-0.2) Membranes Rupture Rom plus negative (Negative) Syphilis IgG/IgM Ab Negative (Negative) HIV 1&2 Ab/P24 Ag 4thGn Negative (Negative) Patient hx anesthesia problems: none Family hx anesthesia problems: none Results Review: All pre-operative results and documents have been reviewed as part of the pre-op erative evaluation. [facility] Past Medical History Medical History History of miscarriage No pertinent past medical history Surgical History Surgical History [place] teeth removed No pertinent past surgical history Family History Family History Father Diabetes mellitus Sibling Asthma Social History Social History Smoking status: Never smoker Alcohol intake: current Substance use: never Do You Feel Safe in your Home?: Yes Lack of Transportation: No Lack of Food: Never True Current Housing: I Have Housing Concerned About Future Housing: No Difficulty Paying Gas/Electric Bills: No Difficulty Paying for Meds: No Currently Unemployed: No Education: Master's Degree or Higher Difficulty w/ Childcare or Family Care: No Living arrangements: alone Occupation/Education: occupation Gender identity (if verbalized by the patient): Female Sexual Orientation (if Verbalized by the Patient): Straight or Heterosexual Spiritual care concerns: No Anes - Eval Final PreProcedure Day of Procedure 06/10/24 18:21 Patient weight: normal Heart: regular rate and rhythm Lungs: normal air movement Airway: Mallampati scale class II Neurological: alert and oriented Last oral intake: 4 hours and 2 hours ASA classification: II Emergent: no Anesthetic plan: proceed Anesthesia type and monitoring: regional epidural and standard monitoring Results Review: All pre-operative results and documents have been reviewed as part of the pre- operative evaluation. Informed Consent: The patient's anesthetic plan and its attendant risks and benefits were discussed with the patient/family/POA. Questions were solicited and answers provided to the satisfaction of the patient/family/POA.
[2024-06-10] MEDS: SODIUM CHLORIDE 0.9% IV 300 ML 600 ML I-UTERINE (22:40)
[2024-06-11] VITALS (188 sets, daily range): BP systolic 104–144; BP diastolic 34–102; PULSE 57–122; RESP 16–26; TEMP 36.4–38.2; O2SAT 91–100
--- NOTE | 2024-06-11 00:02 | PM.IMHP ---
H&P: HPI History of Present Illness Date/Time: 06/11/24 00:02 Chief Complaint: Contractions Narrative: She is a 28 y/o at 40+ weeks with edc of 06/06/24. She presented for labor check due to contractions since 0900. Her cervix did change after several hours from 1 to 2/75%. She was scheduled for induction this week and she requested to stay and augment labor. PNC uncomplicated. She had an isolated episode of mild polyhydramnios which resolved with subsequent ultrasounds. Review of Systems Review of Systems: All systems reviewed & are unremarkable except as noted in HPI and below Constitutional: Constitutional: Reports no additional constitutional complaints and Denies headache(s) Eyes: Eyes: Denies spots in vision ENT: Reports system reviewed and no additional complaints, except as documented and Denies headache(s) Cardiovascular: Cardiovascular: Denies chest pain and Denies dyspnea Respiratory: Respiratory: Denies dyspnea Gastrointestinal: Gastrointestinal: Reports no additional gastrointestinal complaints Genitourinary: Genitourinary: Reports amenorrhea Musculoskeletal: Musculoskeletal: Reports no additional musculoskeletal complaints Integumentary/Breasts: Skin/Breast: Denies breast mass and Denies rash Neurologic: Denies headache(s) Psychiatric: Psychiatric: Reports no additional psychiatric complaints PMFSH Past Medical History Medical History History of miscarriage No pertinent past medical history Surgical History Surgical History [place] teeth removed No pertinent past surgical history Family History Family History Father Diabetes mellitus Sibling Asthma Social History Social History Smoking status: Never smoker Alcohol intake: current Substance use: never Do You Feel Safe in your Home?: Yes Lack of Transportation: No Lack of Food: Never True Current Housing: I Have Housing Concerned About Future Housing: No Difficulty Paying Gas/Electric Bills: No Difficulty Paying for Meds: No Currently Unemployed: No Education: Master's Degree or Higher Difficulty w/ Childcare or Family Care: No Living arrangements: alone Occupation/Education: occupation Gender identity (if verbalized by the patient): Female Sexual Orientation (if Verbalized by the Patient): Straight or Heterosexual Spiritual care concerns: No Meds Home Medications and Allergies Home Medications ?Medication ?Instructions ?Recorded ?Confirmed ?Type vitamin#30 30 mg iron-10 1 cap PO DAILY 02/14/24 06/01/24 History mg iron-folic acid 1 mg-omg3 capsule ferrous sulfate 325 mg (65 mg 325 mg PO DAILY 04/13/24 06/01/24 History iron) tablet Allergies Allergy/AdvReac Type Severity Reaction Status Date / Time No Known Allergies Allergy Verified 06/05/24 13:13 Vital Signs Vital Signs - 24 hr 06/10/24 13:30 06/10/24 14:51 06/10/24 17:30 Temperature 97.4 F L 97.7 F Pulse Rate Blood Pressure Pulse Oximetry Oxygen Delivery Room Air 06/10/24 17:31 06/10/24 18:01 06/10/24 18:26 Temperature Pulse Rate 114 H 100 Blood Pressure 134/88 117/64 Pulse Oximetry 100 Oxygen Delivery 06/10/24 18:29 06/10/24 18:30 06/10/24 18:31 Temperature Pulse Rate 110 H 106 H Blood Pressure 126/73 124/72 Pulse Oximetry 70 L Oxygen Delivery 06/10/24 18:33 06/10/24 18:35 06/10/24 18:36 Temperature Pulse Rate 103 H 102 H Blood Pressure 135/58 L 128/72 Pulse Oximetry 100 Oxygen Delivery 06/10/24 18:38 06/10/24 18:40 06/10/24 18:43 Temperature Pulse Rate 99 109 H 97 Blood Pressure 119/68 124/73 121/57 L Pulse Oximetry 100 Oxygen Delivery 06/10/24 18:45 06/10/24 18:48 06/10/24 18:50 Temperature Pulse Rate 104 H 106 H 91 Blood Pressure 117/71 117/64 126/70 Pulse Oximetry 100 100 Oxygen Delivery 06/10/24 18:53 06/10/24 18:55 06/10/24 18:56 Temperature Pulse Rate 123 H 103 H Blood Pressure 117/68 134/73 Pulse Oximetry 100 Oxygen Delivery 06/10/24 18:58 06/10/24 19:00 06/10/24 19:01 Temperature 98.1 F Pulse Rate 93 120 H Blood Pressure 140/71 133/77 Pulse Oximetry 100 Oxygen Delivery 06/10/24 19:03 06/10/24 19:05 06/10/24 19:08 Temperature Pulse Rate 104 H 110 H 100 Blood Pressure 106/60 113/69 108/90 Pulse Oximetry 98 Oxygen Delivery 06/10/24 19:10 06/10/24 19:11 06/10/24 19:13 Temperature Pulse Rate 106 H 92 Blood Pressure 95/74 L 121/75 Pulse Oximetry 99 Oxygen Delivery 06/10/24 19:15 06/10/24 19:16 06/10/24 19:18 Temperature Pulse Rate 92 101 H Blood Pressure 127/84 132/67 Pulse Oximetry 100 Oxygen Delivery 06/10/24 19:20 06/10/24 19:21 06/10/24 19:23 Temperature Pulse Rate 109 H 138 H Blood Pressure 103/70 118/76 Pulse Oximetry 100 Oxygen Delivery 06/10/24 19:25 06/10/24 19:26 06/10/24 19:28 Temperature Pulse Rate 145 H 114 H Blood Pressure 116/86 126/65 Pulse Oximetry 100 Oxygen Delivery 06/10/24 19:30 06/10/24 19:31 06/10/24 19:33 Temperature Pulse Rate 91 85 Blood Pressure 126/72 108/67 Pulse Oximetry 100 Oxygen Delivery 06/10/24 19:35 06/10/24 19:36 06/10/24 19:38 Temperature Pulse Rate 157 H 122 H Blood Pressure 89/68 L 84/57 L Pulse Oximetry 98 Oxygen Delivery 06/10/24 19:40 06/10/24 19:45 06/10/24 19:47 Temperature Pulse Rate Blood Pressure Pulse Oximetry 100 100 100 Oxygen Delivery 06/10/24 19:48 06/10/24 19:52 06/10/24 19:57 Temperature Pulse Rate 144 H Blood Pressure 109/56 L Pulse Oximetry 100 100 Oxygen Delivery 06/10/24 20:01 06/10/24 20:02 06/10/24 20:07 Temperature Pulse Rate 86 Blood Pressure 128/87 Pulse Oximetry 100 100 Oxygen Delivery 06/10/24 20:12 06/10/24 20:16 06/10/24 20:17 Temperature Pulse Rate 85 Blood Pressure 144/62 H Pulse Oximetry 100 100 Oxygen Delivery 06/10/24 20:22 06/10/24 20:27 06/10/24 20:31 Temperature Pulse Rate 87 Blood Pressure 126/74 Pulse Oximetry 100 100 Oxygen Delivery 06/10/24 20:32 06/10/24 20:37 06/10/24 20:42 Temperature Pulse Rate Blood Pressure Pulse Oximetry 100 100 100 Oxygen Delivery 06/10/24 20:47 06/10/24 20:52 06/10/24 20:57 Temperature Pulse Rate 69 Blood Pressure 182/108 H Pulse Oximetry 77 L 100 100 Oxygen Delivery 06/10/24 21:00 06/10/24 21:01 06/10/24 21:02 Temperature 98.1 F Pulse Rate 114 H Blood Pressure 127/78 Pulse Oximetry 99 Oxygen Delivery 06/10/24 21:07 06/10/24 21:12 06/10/24 21:16 Temperature Pulse Rate 106 H Blood Pressure 118/75 Pulse Oximetry 100 100 Oxygen Delivery 06/10/24 21:17 06/10/24 21:22 06/10/24 21:27 Temperature Pulse Rate Blood Pressure Pulse Oximetry 100 100 100 Oxygen Delivery 06/10/24 21:30 06/10/24 21:32 06/10/24 21:37 Temperature Pulse Rate 108 H Blood Pressure 123/71 Pulse Oximetry 100 100 Oxygen Delivery 06/10/24 21:42 06/10/24 21:46 06/10/24 21:47 Temperature Pulse Rate 111 H Blood Pressure 115/62 Pulse Oximetry 100 99 Oxygen Delivery 06/10/24 21:52 06/10/24 21:57 06/10/24 22:00 Temperature Pulse Rate 112 H Blood Pressure 120/63 Pulse Oximetry 99 99 Oxygen Delivery 06/10/24 22:02 06/10/24 22:07 06/10/24 22:12 Temperature Pulse Rate Blood Pressure Pulse Oximetry 99 99 99 Oxygen Delivery 06/10/24 22:15 06/10/24 22:17 06/10/24 22:22 Temperature Pulse Rate 130 H Blood Pressure 117/94 H Pulse Oximetry 99 98 Oxygen Delivery 06/10/24 22:27 06/10/24 22:30 06/10/24 22:32 Temperature 98.9 F Pulse Rate 98 Blood Pressure 123/71 Pulse Oximetry 99 100 Oxygen Delivery 06/10/24 22:37 06/10/24 22:42 06/10/24 22:45 Temperature Pulse Rate 86 Blood Pressure 115/72 Pulse Oximetry 100 100 Oxygen Delivery 06/10/24 22:47 06/10/24 22:52 06/10/24 22:57 Temperature Pulse Rate Blood Pressure Pulse Oximetry 99 100 100 Oxygen Delivery 06/10/24 23:00 06/10/24 23:02 06/10/24 23:07 Temperature Pulse Rate 86 Blood Pressure 118/73 Pulse Oximetry 99 98 Oxygen Delivery 06/10/24 23:12 06/10/24 23:15 06/10/24 23:17 Temperature Pulse Rate 91 Blood Pressure 117/73 Pulse Oximetry 99 99 Oxygen Delivery 06/10/24 23:22 06/10/24 23:27 06/10/24 23:30 Temperature Pulse Rate 106 H Blood Pressure 117/70 Pulse Oximetry 98 99 Oxygen Delivery 06/10/24 23:32 06/10/24 23:37 06/10/24 23:42 Temperature Pulse Rate Blood Pressure Pulse Oximetry 99 99 98 Oxygen Delivery 06/10/24 23:45 06/10/24 23:47 06/10/24 23:52 Temperature Pulse Rate 94 Blood Pressure 120/73 Pulse Oximetry 98 98 Oxygen Delivery 06/10/24 23:57 06/11/24 00:00 Temperature Pulse Rate 96 Blood Pressure 120/73 Pulse Oximetry 100 Oxygen Delivery Exam Const: General: no acute distress Eyes: General: appearance normal, both eyes and all related structures Resp: Effort & Inspection: normal respiratory effort Cardio: Rate: regular rate GI: Other: Gravid no fundal tenderness no right upper quadrant pain Skin: General skin exam: no rashes or lesions noted Neuro: Cognition (Neuro): normal cognition Extrem: General: normal to inspection Psych: Mental Status: mental status grossly normal H&P: Results Labs Labs: Short CBC 06/10/24 Range/Units 14:44 WBC 9.7 (4.5-10.0) K/mm3 Hgb 13.1 (12.0-15.0) g/dL Hct 40.2 (37.0-47.0) % Plt Count 158 (150-375) k/mm3 Assessment and Plan Assessment and plan (1) Elective induction of labor planned: Status: Acute Assessment and Plan: 1. Early labor. 2. Admit.
--- NOTE | 2024-06-11 00:17 | P.PNOB_ITS ---
OB - PN: Subj Subjective Date/time seen: 06/10/24 1700 fht 155 cat 1, cervix 3/80/-2, AROM, mod mec. OB - PN: Obj Data Labs 06/10/24 14:44 Labs: Laboratory Results - last 24 hr 06/10/24 06/10/24 06/10/24 14:44 14:46 14:51 WBC 9.7 RBC 4.39 Hgb 13.1 Hct 40.2 MCV 91.6 MCH 29.8 MCHC 32.6 RDW 14.9 H Plt Count 158 MPV 12.4 H Immature Gran % (Auto) 0.2 Neut % (Auto) 78.6 H Lymph % (Auto) 13.7 L [place] % (Auto) 7.1 Eos % (Auto) 0.2 Baso % (Auto) 0.2 Lymph # (Auto) 1.33 [place] # (Auto) 0.7 H Eos # (Auto) 0.0 Baso # (Auto) 0.0 Abs Immat Gran (auto) 0.02 Absolute Neuts (auto) 7.7 H Absolute Nucleated RBC 0.000 Nucleated RBC % 0.0 Membranes Rupture Rom plus negative Syphilis IgG/IgM Ab Negative HIV 1&2 Ab/P24 Ag 4thGn Negative Blood Type Antibody Screen 06/10/24 20:50 WBC RBC Hgb Hct MCV MCH MCHC RDW Plt Count MPV Immature Gran % (Auto) Neut % (Auto) Lymph % (Auto) [place] % (Auto) Eos % (Auto) Baso % (Auto) Lymph # (Auto) [place] # (Auto) Eos # (Auto) Baso # (Auto) Abs Immat Gran (auto) Absolute Neuts (auto) Absolute Nucleated RBC Nucleated RBC % Membranes Rupture Syphilis IgG/IgM Ab HIV 1&2 Ab/P24 Ag 4thGn Blood Type A Positive Antibody Screen Negative OB - PN A/P Time Spent With Patient Time: Total time spent is greater than 50% in coordination of care (as documented) at patient's floor/unit and/or counseling patient:
[2024-06-11] MEDS: OXYTOCIN 30 UNITS/NS 500 ML 30 UNITS/500 ML BAG IV CONT (04:55)
[2024-06-11] MEDS: LACTATED RINGERS 1,000 ML 125 ML IV CONT (05:15)
[2024-06-11] MEDS: diphenhydrAMINE HCl INJ 50 MG/ML VIAL 25 MG IV PUSH (09:22)
[2024-06-11] MEDS: ONDANSETRON INJ 4 MG/2 ML VIAL IV PUSH (11:00)
[2024-06-11] MEDS: AMPICILLIN 2 GM/NS 100 ML 2 GM/100 ML BAG IVPB ×3 (11:51→23:13)
[2024-06-11] MEDS: ACETAMINOPHEN 500 MG TABLET 1000 MG PO (11:51)
[2024-06-11] MEDS: AZITHROMYCIN 500 MG/NS 250 ML 500 MG/250 ML BAG 250 MG IVPB (13:00)
--- NOTE | 2024-06-11 13:04 | PM.OBPNVD ---
OB - PN: Subj Subjective Date/time seen: 06/11/24 13:04 Interval history: heart tone 155 category 2 tracing, /-2. Mild caput palpated, this exam is changed from prior exam. IUPC came out. Attempted to insert IUPC but it did not advance, therefore did not insert IUPC. Will continue Pitocin. OB - PN: Obj Data Labs 06/10/24 14:44 Labs: Laboratory Results - last 24 hr 06/10/24 06/10/24 06/10/24 14:44 14:46 14:51 WBC 9.7 RBC 4.39 Hgb 13.1 Hct 40.2 MCV 91.6 MCH 29.8 MCHC 32.6 RDW 14.9 H Plt Count 158 MPV 12.4 H Immature Gran % (Auto) 0.2 Neut % (Auto) 78.6 H Lymph % (Auto) 13.7 L [place] % (Auto) 7.1 Eos % (Auto) 0.2 Baso % (Auto) 0.2 Lymph # (Auto) 1.33 [place] # (Auto) 0.7 H Eos # (Auto) 0.0 Baso # (Auto) 0.0 Abs Immat Gran (auto) 0.02 Absolute Neuts (auto) 7.7 H Absolute Nucleated RBC 0.000 Nucleated RBC % 0.0 Membranes Rupture Rom plus negative Syphilis IgG/IgM Ab Negative HIV 1&2 Ab/P24 Ag 4thGn Negative Blood Type Antibody Screen 06/10/24 20:50 WBC RBC Hgb Hct MCV MCH MCHC RDW Plt Count MPV Immature Gran % (Auto) Neut % (Auto) Lymph % (Auto) [place] % (Auto) Eos % (Auto) Baso % (Auto) Lymph # (Auto) [place] # (Auto) Eos # (Auto) Baso # (Auto) Abs Immat Gran (auto) Absolute Neuts (auto) Absolute Nucleated RBC Nucleated RBC % Membranes Rupture Syphilis IgG/IgM Ab HIV 1&2 Ab/P24 Ag 4thGn Blood Type A Positive Antibody Screen Negative OB - PN A/P Time Spent With Patient Time: Total time spent is greater than 50% in coordination of care (as documented) at patient's floor/unit and/or counseling patient:
--- NOTE | 2024-06-11 13:06 | PM.OBPNVD ---
OB - PN: Subj Subjective Date/time seen: 06/11/24 13:06 Interval history: fht 175, Cat , she is receiving Amp/gent and Tylenol,for chorioamnionitis, she had a fever and tachycardia. Exam unchanged, /-2, swelling of cervix. She was informed of diagnosis of failure to dilate, chorioamnionitis, remote from delivery. She was recommended for section due to failure to progress. She has been informed of risk and benefit of section and risk of continuing labor. Questions answered. She agrees to primary section. OB - PN: Obj Data Labs 06/10/24 14:44 Labs: Laboratory Results - last 24 hr 06/10/24 06/10/24 06/10/24 14:44 14:46 14:51 WBC 9.7 RBC 4.39 Hgb 13.1 Hct 40.2 MCV 91.6 MCH 29.8 MCHC 32.6 RDW 14.9 H Plt Count 158 MPV 12.4 H Immature Gran % (Auto) 0.2 Neut % (Auto) 78.6 H Lymph % (Auto) 13.7 L [place] % (Auto) 7.1 Eos % (Auto) 0.2 Baso % (Auto) 0.2 Lymph # (Auto) 1.33 [place] # (Auto) 0.7 H Eos # (Auto) 0.0 Baso # (Auto) 0.0 Abs Immat Gran (auto) 0.02 Absolute Neuts (auto) 7.7 H Absolute Nucleated RBC 0.000 Nucleated RBC % 0.0 Membranes Rupture Rom plus negative Syphilis IgG/IgM Ab Negative HIV 1&2 Ab/P24 Ag 4thGn Negative Blood Type Antibody Screen 06/10/24 20:50 WBC RBC Hgb Hct MCV MCH MCHC RDW Plt Count MPV Immature Gran % (Auto) Neut % (Auto) Lymph % (Auto) [place] % (Auto) Eos % (Auto) Baso % (Auto) Lymph # (Auto) [place] # (Auto) Eos # (Auto) Baso # (Auto) Abs Immat Gran (auto) Absolute Neuts (auto) Absolute Nucleated RBC Nucleated RBC % Membranes Rupture Syphilis IgG/IgM Ab HIV 1&2 Ab/P24 Ag 4thGn Blood Type A Positive Antibody Screen Negative OB - PN A/P Time Spent With Patient Time: Total time spent is greater than 50% in coordination of care (as documented) at patient's floor/unit and/or counseling patient:
--- NOTE | 2024-06-11 13:09 | P.PCNOB_ITS ---
OB - Delivery Note Procedure Delivery date: 06/11/24 Pre-op diagnosis: Arrest of Dilation, Chorioamniontis and Other (Thick meconium) Post-op Diagnosis: Same Delivery augmentation: Rupture of Membranes and Pitocin Delivery monitor: External FHT, External Uterine and Internal FHT Prior to decision for section, ACOG/SM labor guidelines were considered and discussed with the patient and staff. Decision made to proceed with the section.: Yes Procedure Performed: Primary Surgeon: Leon Hall MD Anesthesia type: Epidural Description of Procedure/Findings: Findings: male infant 7 lb 7 oz OPP presentation loose nuchal cord normal uterus normal fallopian tubes and ovaries bilateral After informed consent, risks and benefits of the procedure was discussed with the patient. The patient was taken to the operating room where she was placed in the dorsal lithotomy position with leftward tilt. After the prior placed epidural anesthesia was found to be adequate, she was then prepped and draped in the usual sterile fashion. A Pfannenstiel skin incision was made with a scalpel and carried through to the underlying layer of fascia. The fascia was then nicked in the midline, extending bilaterally. The fascia was dissected off the rectus muscles bluntly and sharply, superiorly and inferiorly. The rectus muscles were in the midline, and peritoneum was identified and entered bluntly. The pelvic organs were visualized. The bladder blade was then inserted. The vesicouterine peritoneum was identified and entered sharply with Metzenbaum scissors and extended bilaterally and then the bladder flap was created digitally. The low transverse uterine incision was then made with the scalpel and extended with bilateral index fingers in a crescent-shaped fashion. The head was delivered. The loose nuchal cord was manually reduced and the rest of the infant was delivered. The nose and mouth were suctioned with bulb. The The cord was clamped twice and cut. The infant was then handed off to the awaiting pediatric staff. The placenta was then delivered manually. The uterine cavity was sponge curretted. There was marked uterine hypotonia after Pitocin. Anesthesia was instructed to give her Methergine 0.2mg IM, this did improve tone, after several minutes. The uterus was then exteriorized. The uterine incision was then closed with 0 vicryl in a running locked fashion. A second layer of 0 vicryl was used in an imbricating fashion for hemostasis. The posterior cul de sac was irrigated and debris removed. The uterus was then returned to the abdomen. Bilateral gutters was irrigated and cleared off all clots and debris. The uterine incision was noted to be hemostatic. Interceed placed on uterine incision . The muscle bellies were inspected and noted to be hemostatic. The subfascial layer was noted to be hemostatic, and the fascia was closed with 0 Vicryl in a running fashion. The subcutaneous layer was irrigated and then approximated with 3-0 Vicryl in a subcutaneous fashion. The skin was closed with 4.0 vicryl in a subcuticular fashion. Skin dermabond applied at incision. Dressing applied. All instruments, needle, and lap counts were correct x3. The patient was taken to the recovery room in stable condition. The calculated EBL was more than expected. Estimated <1000cc. Specimen: Yes (placenta and cord) Estimated Blood Loss: 1,500 Drains: No Packing: No Pathology: Yes ( placenta and cord) Complications: No immediate complications Condition: Stable Disposition: Floor [place] Baby Date of : 06/11/24 Gestational Age by Date: 40 Infant gender: Male Weight (pounds): 7 Weight (ounces): 7 presentation: vertex position: Other (direct OP) Cord Vessel Description: 3 Vessels, Nuchal Cord (x1 ), Loose, Reduced (manually) and Clamped/Cut score one minute: 6 score five minutes: 9
--- NOTE | 2024-06-11 13:10 | P.DS_ITS ---
DS: Admitting Diagnosis Admitting Diagnosis Labor DS: Discharge Diagnosis Discharge Diagnosis (1) Failure of cervical dilation: Code(s): O62.0 - Primary inadequate contractions Status: Acute (2) Chorioamnionitis: Code(s): O41.1290 - Chorioamnionitis, unspecified trimester, not applicable or unspecified Status: Acute OB - DS: Summary Hospital Course Hospital Course: She was admitted in early labor. Labor augmented with AROM. Thick meconium noted. She had intermittent variables and had IUPC placed and amnioinfusion started. Variables improved. She had Pitocin augmentation. She made slow progress to 7. She was adequate nancy. She continued to have cervical swelling. She was given Benadryl. No change in dilation for 4 hours. She had maternal fever and tachycardia and was started on antibiotics for chorioamnionitis. She was recommended for section for failure to progress. Peripartum Data Procedures: Procedures Operation Date: 06/11/24 13:30 <No data on this case meets the specified criteria> Time Spent with Patient Time attestation: Total time spent providing and/or coordinating discharge services: DS: Data Data Completed and Pending Labs on day of discharge: Labs from last 24 hours 06/10/24 06/10/24 06/10/24 20:50 14:51 14:46 WBC RBC Hgb Hct MCV MCH MCHC RDW Plt Count MPV Immature Gran % (Auto) Neut % (Auto) Lymph % (Auto) [place] % (Auto) Eos % (Auto) Baso % (Auto) Lymph # (Auto) [place] # (Auto) Eos # (Auto) Baso # (Auto) Abs Immat Gran (auto) Absolute Neuts (auto) Absolute Nucleated RBC Nucleated RBC % Membranes Rupture Rom plus negative Syphilis IgG/IgM Ab Negative HIV 1&2 Ab/P24 Ag 4thGn Blood Type A Positive Antibody Screen Negative 06/10/24 14:44 WBC 9.7 RBC 4.39 Hgb 13.1 Hct 40.2 MCV 91.6 MCH 29.8 MCHC 32.6 RDW 14.9 H Plt Count 158 MPV 12.4 H Immature Gran % (Auto) 0.2 Neut % (Auto) 78.6 H Lymph % (Auto) 13.7 L [place] % (Auto) 7.1 Eos % (Auto) 0.2 Baso % (Auto) 0.2 Lymph # (Auto) 1.33 [place] # (Auto) 0.7 H Eos # (Auto) 0.0 Baso # (Auto) 0.0 Abs Immat Gran (auto) 0.02 Absolute Neuts (auto) 7.7 H Absolute Nucleated RBC 0.000 Nucleated RBC % 0.0 Membranes Rupture Syphilis IgG/IgM Ab HIV 1&2 Ab/P24 Ag 4thGn Negative Blood Type Antibody Screen Discharge Plan Discharge Patient Language: Bulgarian Discharge Medications: No Action PNV #[id number] 30 mg iron-10 mg iron-1 mg capsule 1 cap PO DAILY ferrous sulfate 325 mg (65 mg iron) tablet 325 mg PO DAILY Date of admission: 06/10/24 11:43 Primary Care Provider: UNKNOWN,DOCTOR Admitting Provider: Leon Hall Attending physician on admission: Leon Hall
--- NOTE | 2024-06-11 13:10 | PM.OBDSVD ---
DS: Admitting Diagnosis Discharge Date 06/14/24 Admitting Diagnosis Labor DS: Discharge Diagnosis Discharge Diagnosis (1) Failure of cervical dilation: Code(s): O62.0 - Primary inadequate contractions Status: Acute (2) Chorioamnionitis: Code(s): O41.1290 - Chorioamnionitis, unspecified trimester, not applicable or unspecified Status: Acute (3) Post-op pain: Code(s): G89.18 - Other acute postprocedural pain Status: Acute OB - DS: Summary Hospital Course Hospital Course: She was admitted in labor. Labor course significant for failure to dilate and choriomanionitis. She had an uncomplicated primary section. She did well post op. She was tolerating regular diet, and ambulating and had adequate pain control on post op day 1. Antibiotics were discontinued after 24 hours of initial dose. She did not have a fever post op. Baby was doing well. She was discharged to home on post op day 3. Discharge precautions discussed. OB Procedures : Ultrasound OB Procedures Intrapartum: OB Procedures: : Antibiotics Peripartum Data Infant Delivery Method: Section Procedures: Procedures Operation Date: 06/11/24 13:30 <No data on this case meets the specified criteria> complications: none Status at Discharge Functional status at discharge: independent ambulation Time Spent with Patient Time attestation: Total time spent providing and/or coordinating discharge services: Exam Const: General: cooperative Orientation/consciousness: oriented to person, oriented to place and oriented to time HENMT: Face/Nose/Sinus: Normal external nose present Eyes: General: appearance normal, both eyes and all related structures Resp: Effort & Inspection: normal respiratory effort GI: Inspection: normal to inspection Skin: General skin exam: normal color Neuro: General: oriented to person, oriented to place and oriented to time Extrem: General: normal to inspection and no calf tenderness Psych: Appearance: grossly normal Mental Status: mental status grossly normal DS: Data Data Completed and Pending Labs on day of discharge: Labs from last 24 hours 06/10/24 06/10/24 06/10/24 20:50 14:51 14:46 WBC RBC Hgb Hct MCV MCH MCHC RDW Plt Count MPV Immature Gran % (Auto) Neut % (Auto) Lymph % (Auto) Johnson % (Auto) Eos % (Auto) Baso % (Auto) Lymph # (Auto) Johnson # (Auto) Eos # (Auto) Baso # (Auto) Abs Immat Gran (auto) Absolute Neuts (auto) Absolute Nucleated RBC Nucleated RBC % Membranes Rupture Rom plus negative Syphilis IgG/IgM Ab Negative HIV 1&2 Ab/P24 Ag 4thGn Blood Type A Positive Antibody Screen Negative 06/10/24 14:44 WBC 9.7 RBC 4.39 Hgb 13.1 Hct 40.2 MCV 91.6 MCH 29.8 MCHC 32.6 RDW 14.9 H Plt Count 158 MPV 12.4 H Immature Gran % (Auto) 0.2 Neut % (Auto) 78.6 H Lymph % (Auto) 13.7 L Johnson % (Auto) 7.1 Eos % (Auto) 0.2 Baso % (Auto) 0.2 Lymph # (Auto) 1.33 Johnson # (Auto) 0.7 H Eos # (Auto) 0.0 Baso # (Auto) 0.0 Abs Immat Gran (auto) 0.02 Absolute Neuts (auto) 7.7 H Absolute Nucleated RBC 0.000 Nucleated RBC % 0.0 Membranes Rupture Syphilis IgG/IgM Ab HIV 1&2 Ab/P24 Ag 4thGn Negative Blood Type Antibody Screen Discharge Plan Discharge Attending physician on discharge: Leon Hall Consulting providers: Mariposa Sigala Discharging Clinician: Leon Hall Anticipated Discharge Date/Time: 06/14/24 12:12 Patient Disposition: Home, Self-Care Activity: no straining, no driving and pelvic rest Diet: regular Discharge Instructions: Education: Mom and Baby Guide Given to: Mother Follow-Up: Call your delivering provider's office for an appointment to be seen in: call and make an appointment Mom and baby should come to the [facility] for the follow-up appointment. Appointment Date/Time: June 15, 2024 at 11:00 am What to expect at your follow-up visit: Blood Pressure Check Physical Assessment Call [phone] if you are unable to keep your appointment time. BREAST CARE: * Wear a snug supportive bra. * For engorgement discomfort: Bottle Feeding: * May apply ice packs ABDOMINAL INCISION: * Allow incision to air dry * Do NOT use lotions for powders on your incision * When showering, allow soap and water to run over the incision, but do not wash incision EPISIOTOMY/PERINEAL CARE: * Until bleeding stops, use your candelario bottle after urinating * Change your pad frequently throughout the day * You may take sitz baths several times a day (fill your bathtub with warm water and soak for 20 minutes.) Do NOT bathe in the water * No tub baths until seen by your physician - You may shower ACTIVITY: * Rest as much as possible. * Do not exercise or lift anything heavier than your baby (such as laundry or other children.) * Avoid stairs or driving as much as possible. * Do not put anything into the vagina. No douching, tampons, or sexual activity until seen by physician. NOTIFY PHYSICIAN IF YOU HAVE ANY QUESTIONS OR IF ANY OF THE FOLLOWING SYMPTOMS OCCUR: * If your episiotomy or incision becomes red, swollen, or more painful than what you have experienced in the hospital. * If your vaginal bleeding becomes foul smelling. * If your vaginal bleeding becomes more heavy than a period or if your bleeding changes from pink to bright red. However, you may pass an occasional walnut-sized clot once or twice for the first week . * If you experience a sharp, shooting pain in you calves. * If you discover a hard, reddened area on your breast or if you experience flu-like symptoms. DIET: * Eat regular, well-balanced meals. * Drink plenty of fluids daily. If , drink to thirst. Patient Instructions: Antibiotic Form Patient Language: Vietnamese Stand Alone Forms: General Discharge Information Follow-up/Referrals: Leon Hall MD [Physician] - 2 Weeks (Call for appointment) Discharge Medications: New hydrocodone-acetaminophen 5-325 mg Tablet 1 tablet PO Q3H PRN (Reason: Breakthrough Pain Rated 4-6) Qty: 20 0RF acetaminophen 325 mg Tablet 650 mg PO Q6H Qty: 20 0RF ibuprofen 600 mg Tablet 600 mg PO Q6H Qty: 30 0RF No Action PNV #[id number] 30 mg iron-10 mg iron-1 mg capsule 1 cap PO DAILY ferrous sulfate 325 mg (65 mg iron) tablet 325 mg PO DAILY Date of admission: 06/10/24 11:43 Primary Care Provider: UNKNOWN,DOCTOR Admitting Provider: Leon Hall Attending physician on admission: Leon Hall Condition: Stable
[2024-06-11] MEDS: FAMOTIDINE 20 MG/2 ML VIAL (13:26)
[2024-06-11] MEDS: ceFAZolin 2 GM/D5W 50 ML 2 GM/50 ML BAG IVPB (13:40)
[2024-06-11] MEDS: GENTAMICIN SULFATE INJ 385 MG in DEXTROSE 5% 100 ML 109.63 MG IVPB (13:51)
[2024-06-11] MEDS: miSOPROStol 200 MCG TABLET 800 MCG RECTAL (14:20)
[2024-06-11] MEDS: MORPHINE SULFATE INJ (*CRX) 10 MG/ML AMP 2 MG IV PUSH (15:17)
[2024-06-11] MEDS: SIMETHICONE 80 MG TAB.CHEW PO (17:45)
[2024-06-11] MEDS: ACETAMINOPHEN 325 MG TABLET 650 MG PO ×2 (17:45→23:12)
[2024-06-11] MEDS: DOCUSATE SODIUM 100 MG CAPSULE PO (17:45)
[2024-06-11] MEDS: KETOROLAC 15 MG/ML VIAL (*BKC) IV PUSH ×2 (17:46→23:12)
[2024-06-11] MEDS: LIDOCAINE 5% PATCH 1 PATCH TRANSDERM (17:47)
--- NOTE | 2024-06-11 18:03 | OBPPTRN ---
Patient transferred to post room #282 via stretcher. Support person present. Oriented to unit, room, information board, rooming in, admission packet and security measures. Patient verbalizes understanding.
[2024-06-11] MEDS: DEXTROSE 5%/0.45% SOD CHL 1,000 ML 125 ML IV CONT (19:12)
[2024-06-11 19:50] LABS: Hemoglobin 10.6 g/dL (12.0-15.0); Mean Corpuscular HGB Conc 33.1 g/dl (32-36); Mean Corpuscular Hemoglobin 30.4 pg (26-34); Mean Corpuscular Volume 91.7 fl (80-100); Mean Platelet Volume 12.5 fl (7.4-10.4); Platelet Count Result 134 k/mm3 (150-375); Red Blood Count 3.49 M/mm3 (4.2-5.4); Red Cell Distribution Width 15.1 % (11.5-14.5); White Blood Count 23.4 K/mm3 (4.5-10.0)
[2024-06-11 20:02] LABS: Estimated CRCL calculation 112 ml/min; Estimated Glomerular Filt Rate > 60
[2024-06-11] MEDS: CLINDAMYCIN 900 MG/D5W 50 ML 900 MG/50 ML PIGGYBACK 50 MG IVPB (20:17)
[2024-06-12 02:13] LABS: Gentamicin Random 0.9 ug/mL (5.0-12.0)
[2024-06-12] MEDS: AMPICILLIN 2 GM/NS 100 ML 2 GM/100 ML BAG IVPB ×3 (03:30→11:27)
[2024-06-12 04:00] VITALS: BP 106/64; PULSE 99; RESP 18; TEMP 36.6; O2SAT 98
[2024-06-12] MEDS: HYDROcodone/acetaminophen (*CRX) 5-325 MG TABLET 1 TAB PO ×4 (04:27→20:52)
[2024-06-12] MEDS: CLINDAMYCIN 900 MG/D5W 50 ML 900 MG/50 ML PIGGYBACK 50 MG IVPB ×2 (04:28→12:21)
[2024-06-12] MEDS: ACETAMINOPHEN 325 MG TABLET 650 MG PO ×4 (05:01→23:44)
[2024-06-12] MEDS: KETOROLAC 15 MG/ML VIAL (*BKC) IV PUSH ×2 (05:01→11:29)
[2024-06-12 06:28] LABS: Basophils Absolute Auto 0.1 K/mm3 (0.0-0.1); Basophils Percent Auto 0.3 % (0.2-1.2); Eosinophils Percent Auto 0.1 % (0-4.4); Hematocrit 32.1 % (37.0-47.0); Hemoglobin 10.3 g/dL (12.0-15.0); Immature Granulocyte Absolute 0.09 K/mm3 (0.00-0.031); Immature Granulocyte Percent A 0.5 % (0-0.5); Immature Platelet Fraction Pct 15.8 % (0.9-11.2); Lymphocytes Percent Auto 6.2 % (18.3-44.2); Mean Corpuscular HGB Conc 32.1 g/dl (32-36); Mean Corpuscular Hemoglobin 30.4 pg (26-34); Mean Corpuscular Volume 94.7 fl (80-100); Mean Platelet Volume 13.2 fl (7.4-10.4); Monocytes Absolute Auto 1.2 K/mm3 (0.1-0.6); Monocytes Percent Auto 6.1 % (2.6-8.5); Neutrophils Absolute Auto 16.7 K/mm3 (1.3-6.7); Neutrophils Percent Auto 86.8 % (45.5-73.1); Platelet Count Result 131 k/mm3 (150-375); Red Blood Count 3.39 M/mm3 (4.2-5.4); Red Cell Distribution Width 15.2 % (11.5-14.5); White Blood Count 19.2 K/mm3 (4.5-10.0)
[2024-06-12 07:42] VITALS: BP 114/77; PULSE 68; RESP 14; TEMP 36.5; O2SAT 97
--- NOTE | 2024-06-12 08:11 | PC.NURSE ---
On 06/12/24, the student, Devika Ribeiro, provided care and completed [facility] documentation on this patient. I have reviewed the student's documentation and agree with the findings.
[2024-06-12] MEDS: FERROUS SULFATE 325 MG TABLET DR PO (08:13)
[2024-06-12] MEDS: DOCUSATE SODIUM 100 MG CAPSULE PO ×2 (08:13→17:36)
[2024-06-12] MEDS: SIMETHICONE 80 MG TAB.CHEW PO ×3 (08:13→17:36)
[2024-06-12] MEDS: MULTIVIT/MIN/PREN/FOL AC/IRON TABLET 1 TAB PO (08:13)
[2024-06-12 12:26] VITALS: BP 112/65; PULSE 101; RESP 18; TEMP 36.5; O2SAT 96
[2024-06-12] MEDS: GENTAMICIN SULFATE INJ 385 MG in DEXTROSE 5% 100 ML 109.63 MG IVPB (14:07)
--- NOTE | 2024-06-12 14:47 | WPDANLDNPN2 ---
Anes-Prog Note L&D-Neuraxial Date/Time: 06/12/24 14:47 Neuraxial medications: epidural PF morphine Opiod-related complaints: none Patient feedback: Patient satisfied with post-operative pain management.
--- NOTE | 2024-06-12 14:48 | WPDANLDPN2 ---
Anes-Prog Note L&D Date/Time: 06/12/24 14:48 Comfortable throughout: labor, delivery and section Neuraxial method: epidural Epidural/Spinal procedure site: clean & non-tender Neuro status: Neuro function grossly intact. Cardiovascular status: normal Respiratory status: normal Airway patency: baseline Mental status: baseline Vital Signs: Last Vital Signs Temp 36.5 C 06/12/24 12:26 Pulse 101 H 06/12/24 12:26 Resp 18 06/12/24 12:26 BP 112/65 06/12/24 12:26 Pulse Ox 96 06/12/24 12:26 O2 Del Method Room Air 06/12/24 11:34 Pain score (VAS): 1 I/O: Intake & Output 06/11/24 06/12/24 06/12/24 23:59 07:59 15:59 Intake Total 250 150 675 Output Total 1250 1000 500 Balance -1000 -850 175 Patient feedback: Patient satisfied with anesthetic care.
--- NOTE | 2024-06-12 16:43 | PM.OBPNVD ---
OB - PN: Subj Subjective Date/time seen: 06/12/24 1000 Interval history: she states she has gotten up in the room and walks okay without problems no lightheadedness or dizziness. Lochia is light. She has adequate pain control with the medications. Baby is doing well she is bottle feeding. She has had flatus. Tolerated regular food. OB - PN: Obj Data Labs 06/12/24 04:57 06/11/24 19:16 Labs: Laboratory Results - last 24 hr 06/11/24 06/12/24 06/12/24 19:16 00:34 04:57 WBC 23.4 H 19.2 H RBC 3.49 L 3.39 L Hgb 10.6 L 10.3 L Hct 32.0 L 32.1 L MCV 91.7 94.7 MCH 30.4 30.4 MCHC 33.1 32.1 RDW 15.1 H 15.2 H Plt Count 134 L 131 L MPV 12.5 H 13.2 H Immature Gran % (Auto) 0.5 Neut % (Auto) 86.8 H Lymph % (Auto) 6.2 L [place] % (Auto) 6.1 Eos % (Auto) 0.1 Baso % (Auto) 0.3 Lymph # (Auto) 1.20 [place] # (Auto) 1.2 H Eos # (Auto) 0.0 Baso # (Auto) 0.1 Abs Immat Gran (auto) 0.09 H Absolute Neuts (auto) 16.7 H Absolute Nucleated RBC 0.000 Nucleated RBC % 0.0 % Immature Plt Fraction 15.0 H 15.8 H Creatinine 0.60 L Estim Creat Clear Calc 112 Estimated GFR > 60 Random Gentamicin 0.9 L OB - PN A/P Assessment and Plan (1) Delivery by section: Status: Acute Assessment and Plan: postop day 1. Status post for failure to dilate. She is doing well. Routine post care. Time Spent With Patient Time: Total time spent is greater than 50% in coordination of care (as documented) at patient's floor/unit and/or counseling patient: Exam Const: General: comfortable and no acute distress Resp: Effort & Inspection: normal respiratory effort GI: Other: Dressing clean and intact Psych: Mental Status: mental status grossly normal Affect: normal affect
[2024-06-12] MEDS: IBUPROFEN 600 MG TABLET PO ×2 (17:36→23:44)
[2024-06-12 20:58] VITALS: BP 111/69; PULSE 93; RESP 20; TEMP 36.9; O2SAT 98
[2024-06-13] MEDS: FERROUS SULFATE 325 MG TABLET DR PO (06:42)
[2024-06-13] MEDS: SIMETHICONE 80 MG TAB.CHEW PO ×3 (06:42→16:50)
[2024-06-13] MEDS: ACETAMINOPHEN 325 MG TABLET 650 MG PO ×3 (06:42→18:39)
[2024-06-13] MEDS: DOCUSATE SODIUM 100 MG CAPSULE PO ×2 (06:42→16:55)
[2024-06-13] MEDS: IBUPROFEN 600 MG TABLET PO ×3 (06:42→18:39)
[2024-06-13 07:45] VITALS: BP 119/74; PULSE 92; RESP 16; TEMP 36.9; O2SAT 99
--- NOTE | 2024-06-13 10:29 | PC.NURSE ---
On 06/13/24, the student, Massimo Ge, provided care and completed [facility] documentation on this patient. I have reviewed the student's documentation and agree with the findings.
[2024-06-13 18:56] VITALS: BP 115/77; PULSE 86; RESP 16; TEMP 36.8; O2SAT 100
[2024-06-14] MEDS: ACETAMINOPHEN 325 MG TABLET 650 MG PO ×2 (00:10→06:27)
[2024-06-14] MEDS: IBUPROFEN 600 MG TABLET PO ×2 (00:10→06:27)
[2024-06-14] MEDS: FERROUS SULFATE 325 MG TABLET DR PO (06:26)
[2024-06-14] MEDS: SIMETHICONE 80 MG TAB.CHEW PO (06:26)
[2024-06-14] MEDS: DOCUSATE SODIUM 100 MG CAPSULE PO (06:27)
[2024-06-14 08:00] VITALS: BP 116/78; PULSE 85; RESP 16; TEMP 36.6; O2SAT 99
[2024-06-15 11:22] VITALS: BP 129/80; PULSE 78; RESP 18; TEMP 37.1; O2SAT 100
== END 2024-06-14 13:24 | disposition home or self-care (01) | DRG 786 ==
LOC: ANHLDR 14:18 → ANHOB2 06-11 17:16
PROVIDERS: Admitting Provider Obstetrics & Gynecology; Visit Provider Obstetrics & Gynecology
PROC: 10D00Z1 Extraction of Products of Conception, Low, Open Approach (ICD-10-PCS; CPT 59514; principal; 2024-06-11 13:30)
DX: O62.0 Primary inadequate contractions (principal); O41.1230 Chorioamnionitis, third trimester, not applicable or unspecified; O76 Abnormality in fetal heart rate and rhythm complicating labor and delivery; O69.81X0 Labor and delivery complicated by cord around neck, without compression, not applicable or unspecified; O77.0 Labor and delivery complicated by meconium in amniotic fluid; Z3A.40 40 weeks gestation of pregnancy; Z37.9 Outcome of delivery, unspecified
CPT/HCPCS: 36415; 80170; 82565; 84112; 85025; 85027; 85055; 86593; 86703; 86850; 86900; 86901; 88307; A9270; G0432; J0290; J0456; J0690; J1200; J1580; J1885; J2003; J2210; J2270; J2274; J2405; J2590; J2795; J7030; J7120